=== PATIENT | female | born 1990 | race Caucasian/White ===

== ENCOUNTER 2019-09-19 13:53 | Outpatient (CLI) | payer OTHER, SELFPAY ==
--- NOTE | ~2019-09-19 | US_ITS ---
US OB <=14 wk fetus w TV DATE: 09/19/2019 14:52 INDICATION: Vaginal bleeding in early TECHNIQUE: COMPARISON: None FINDINGS: The uterus measures approximately 11 cm height and up to 4.5 cm anteroposterior dimension. There is a normal appearing intrauterine gestational sac with normal surrounding hyperechogenicity co nsistent with decidual reaction. A single live intrauterine gestation is identified, with heart rate of 122 bpm. [employer]-rump length averages 0.60 cm, consistent with estimated gestational age of 6 weeks 3 days +/- 4 days; BRIDGER by ultrasound is 05/11/2020 Right ovary measures 3.6 x 2.2 x 1.5 cm, with evidence of vascular flow. Left ovary measures 4.0 x 1.9 x 2.4 cm with vascular flow. There is a corpus luteum cyst measuring 1. 3 x 1.1 cm. Small fluid collection in the posterior cul-de-sac. IMPRESSION: Live dawson intrauterine gestation [employer]-rump length measurement 0.60 cm; estimated gestational age of 6 weeks 3 days +/- 4 days; BRIDGER: Reviewed, dictated and finalized at [facility]. Reviewed, dictated and finalized at location [facility]. IMPRESSION: Live dawson intrauterine gestation [employer]-rump length measurement 0.60 cm; estimated gestational age of 6 weeks 3 d ays +/- 4 days; BRIDGER: 05/11/2020
== END 2019-09-19 13:54 | disposition home or self-care (01) ==
PROVIDERS: Visit Provider Student in an Organized Health Care Education/Training Program
DX: O20.9 Hemorrhage in early pregnancy, unspecified (principal); Z3A.01 Less than 8 weeks gestation of pregnancy
CPT/HCPCS: 36415; 76801; 76817; 85461

== ENCOUNTER 2019-10-07 01:00 | Emergency (ER) | payer OTHER, SELFPAY ==
[2019-10-07 01:04] VITALS: BP 122/66; PULSE 78; RESP 20; TEMP 36.4; O2SAT 100
--- NOTE | 2019-10-07 01:11 | ED.PREGNANCY ---
HPI - General Chief complaint: Vaginal Bleeding Stated complaint: 9 WEEKS PREG BLEEDING Time Seen by Provider: 10/07/19 01:05 Source: patient Mode of arrival: ambulatory Limitations: no limitations History of Present Illness HPI Narrative: This patient is a 29 year old female who presents for evaluation of vaginal bleed. She states 3 weeks ago she was evaluated for vaginal spotting and she had an ultrasound that showed a live IUP. She has been doing well until tonight when she developed vaginal bleeding using the restroom . She is unsure how much she is bleeding but she reports bright red blood in the toilet. She is also having pelvic cramping that is worse than a menstrual cramp. She is rH negative but she has not had rhogam during this . MD Complaint: vaginal bleeding Onset (ago): hour(s) (1) Pain Consistency: constant Location: pelvis Patient : Yes Number of Weeks : 9 care: followed by OB (Dr. Figueroa) Related Data : 4 Para: 2 Total number of abortions (spontaneous and elective): 1 Allergies Allergy/AdvReac Type Severity Reaction Status Date / Time amoxicillin Allergy Unknown Unknown Verified 10/07/19 01:06 ampicillin Allergy Unknown Unknown Verified 10/07/19 01:06 Penicillins Allergy Unknown Unknown Verified 10/07/19 01:06 Review of Systems Review of Systems: All systems reviewed & are unremarkable except as noted in HPI and below Constitutional: Constitutional: Denies chills and Denies fever(s) Respiratory: Respiratory: Denies cough and Denies dyspnea Gastrointestinal: Gastrointestinal: Reports abdominal pain and Reports nausea Genitourinary: Genitourinary: Reports abnormal vaginal bleeding [facility] Past Medical History Medical History (Updated 10/07/19 @ 03:06 by Marisol Friedman MD) Patient denies medical problems Social History Social History Smoking status: Never smoker Alcohol intake: never Exam Narrative: Exam Narrative: GENERAL: Well-appearing, well-nourished, and in no acute distress. HEAD: Normocephalic, atraumatic EYES: EOMI, conjunctiva clear without discharge THROAT:Mucous membranes moist, NECK: Supple, RESPIRATORY: No respiratory distress, Airway patent, Respirations non-labored, Clear to auscultation without rales, rhonchi or wheeze HEART: Regular rate and rhythm. No murmur heard. Normal peripheral pulses. ABDOMEN: Soft, nontender, nondistended, normal active bowel sounds. No masses. No rebound or guarding, No organomegaly. EXTREMITIES: No edema, normal strength with full range of motion. SKIN: Warm, dry, normal color without rash NEURO: Alert and oriented x3. CN 2-12 grossly intact. No focal deficits. PSYCH: Normal mood and affect. : Speculum Exam - Vagina: vaginal bleeding (removed half dollar size clot from vaginal vault, no active bleeding,) Speculum Exam - Cervix: Cervical os closed Course Reevaluation(s) Reevaluation #1: I performed a bedside ultrasound and patient still has IUP with FHT 150s. I have explained to patient discharge plan after rhogam Date: 10/07/19 Time: 03:04 Consultations Consultation #1: I Discussed case with DR. Figueroa who states patient should call office this morning to get arranged for ultrasound. Date: 10/07/19 Time: 03:04 Vital Signs Vital signs: Vital Signs Temperature 97.6 F 10/07/19 01:04 Pulse Rate 78 10/07/19 01:04 Respiratory Rate 20 10/07/19 01:04 Blood Pressure 122/66 10/07/19 01:04 Pulse Oximetry 100 10/07/19 01:04 Temperature 98.3 F 10/07/19 03:13 Pulse Rate 61 10/07/19 03:13 Respiratory Rate 19 10/07/19 03:13 Blood Pressure 117/65 10/07/19 03:13 Pulse Oximetry 100 10/07/19 03:13 MDM - OB/Uterine Contractions Lab Data Attestation: I reviewed the patient's lab results. Result diagrams: 10/07/19 01:23 Labs: Lab Results 10/07/19 10/07/19 06
[2019-10-07 01:30] LABS: Basophils Absolute Auto 0.1 K/mm3 (0.0-0.1); Basophils Percent Auto 0.4 % (0.2-1.2); Eosinophils Absolute Auto 0.2 K/mm3 (0-0.3); Eosinophils Percent Auto 1.7 % (0-4.4); Hematocrit 38.7 % (37.0-47.0); Hemoglobin 12.9 g/dL (12.0-15.0); Immature Granulocyte Absolute 0.04 K/mm3 (0.00-0.031); Immature Granulocyte Percent A 0.3 % (0-0.5); Lymphocytes Absolute Auto 3.15 K/mm3 (0.9-3.2); Lymphocytes Percent Auto 27.2 % (18.3-44.2); Mean Corpuscular HGB Conc 33.3 g/dl (32-36); Mean Corpuscular Volume 83.9 fl (80-100); Mean Platelet Volume 11.6 fl (7.4-10.4); Monocytes Absolute Auto 0.7 K/mm3 (0.1-0.6); Neutrophils Absolute Auto 7.5 K/mm3 (1.3-6.7); Neutrophils Percent Auto 64.4 % (45.5-73.1); Platelet Count Result 240 k/mm3 (150-375); Red Blood Count 4.61 M/mm3 (4.2-5.4); White Blood Count 11.6 K/mm3 (4.5-10.0)
[2019-10-07 02:35] VITALS: BP 118/76; PULSE 84; RESP 19; TEMP 36.6; O2SAT 100
[2019-10-07 02:53] VITALS: BP 116/72; PULSE 81; RESP 16; TEMP 36.8; O2SAT 100
[2019-10-07 03:04] VITALS: BP 112/69; PULSE 59; RESP 19; O2SAT 100
[2019-10-07 03:13] VITALS: BP 117/65; PULSE 61; RESP 19; TEMP 36.8; O2SAT 100
== END 2019-10-07 03:18 | disposition home or self-care (01) ==
PROVIDERS: Emergency Provider General Practice; PCP Family Medicine
DX: O20.9 Hemorrhage in early pregnancy, unspecified (principal); Z3A.09 9 weeks gestation of pregnancy
CPT/HCPCS: 36415; 84702; 85025; 85461; 90384; 96372; 96374; 99284; J0131; J2790

== ENCOUNTER 2019-10-08 10:35 | Outpatient (CLI) | payer OTHER, SELFPAY ==
--- NOTE | ~2019-10-08 | US_ITS ---
EXAMINATION: US OB <= 14 weeks fetus EXAM DATE: 10/08/2019 11:11 INDICATION: Abdominal bleeding. . 1st trimester. TECHNIQUE: Pelvic obstetrical transabdominal sonogram was performed by a technologist. There are mu ltiple grayscale and Doppler images available for interpretation. Comparison is made to prior examina tion from 09/19/2019. FINDINGS: Uterus measures 10.8 x 6.4 x 6.0 cm. There is intrauterine gestation sac. pole with heart rate confirmed at 159 beats per minute. The 2.3 cm crown-rump length corresponds to estimated gestational age by ultrasound of 9 weeks 0 days, estimated date of confinement 05/12/2020. Yolk sac is identified. There is a thin hypoechoic regions adjacent to the chorion measuring 2 cm diameter b y 3 mm in thickness, consistent with small subchorionic hemorrhage. Left ovary likely contains the c orpus luteal cyst. Right ovary not identified. IMPRESSION: Live intrauterine gestation with small subchorionic hemorrhage. Reviewed, dictated and finalized at location [facility].
== END 2019-10-08 10:36 | disposition home or self-care (01) ==
LOC: ANHIMG 10:39
PROVIDERS: PCP Family Medicine; Visit Provider Student in an Organized Health Care Education/Training Program
DX: O43.899 Other placental disorders, unspecified trimester (principal); Z3A.00 Weeks of gestation of pregnancy not specified
CPT/HCPCS: 76801

== ENCOUNTER 2019-10-21 07:14 | Emergency (ER) | payer OTHER, SELFPAY ==
--- NOTE | ~2019-10-21 | US_ITS ---
EXAMINATION: US OB <= 14 weeks fetus DATE: 10/21/2019 08:46 INDICATION: Lower abdominal pain during first trimester TECHNIQUE: Real-time pelvic transabdominal and transvaginal ultrasound was performed. COMPARISON: 10/08/2019 FINDINGS: The uterus measures 13.9 x 10.3 x 6.2 cm. There is an intrauterine gestational sac. A yolk sac is identified. heart motion is identified measuring 152 beats per minute (bpm) by M-mode D oppler. The crown rump length measures 4.2 cm , which correlates with an estimated gestational age of 11 weeks and 1 day(s) (+/-) 7 day(s). The left ovary is not visualized however no left adnexal abnormality is seen. The right ovary measure s 3.6 x 3.2 x 1.6 cm. There is normal vascular flow in the right ovary. There is no free fluid in the pelvis. IMPRESSION: 1. Live intrauterine with an estimated gestational age of 11 weeks and 1 day(s) (+/-) 7 day (s) and an estimated delivery date of 05/10/2019. 2. No sonographic correlate for the patient's symptoms. Reviewed, dictated and finalized at location [facility]. IMPRESSION: 1. Live intrauterine with an estimated gestational age of 11 weeks an d 1 day(s) (+/-) 7 day(s) and an estimated delivery date of 05/10/2019. 2. No sonographic correlate for the patient's symptoms.
[2019-10-21 07:22] VITALS: BP 103/58; PULSE 64; RESP 18; TEMP 37.1; O2SAT 99
--- NOTE | 2019-10-21 07:32 | ED.NAVMDI ---
HPI - Nausea/Vomiting/Diarrhea General Chief complaint: Nausea/Vomiting/Diarrhea Stated complaint: 11 WK PREG, N/V Time Seen by Provider: 10/21/19 07:21 History of Present Illness HPI Narrative: Patient presents with her for vomiting for 24 hours. She has lower abdominal pain with this. 5 or 6 out of 10. Also she has a headache in the posterior occiput, 8 out of 10. She is 11 weeks . She has not had diarrhea. She has had no documented fever, but has had chills and sweats after vomiting. She has a history of migraine. This is her third with a 1-year-old and 3-year-old at home. Her only prescription medication is her vitamins. Her surgical history is C-sections x2. MD elicited complaint: nausea, vomiting and abdominal pain Pertinent past history: abdominal surgery and other (Migraine headache with vomiting) Onset (ago): day(s) Associated nausea: Yes Associated abdominal pain: Yes Location of pain: suprapubic Pain consistency: constant Severity: moderate Related Data Allergies Allergy/AdvReac Type Severity Reaction Status Date / Time amoxicillin Allergy Unknown Unknown Verified 10/08/19 09:35 ampicillin Allergy Unknown Unknown Verified 10/08/19 09:35 Penicillins Allergy Unknown Unknown Verified 10/08/19 09:35 Review of Systems Review of Systems: Narrative: CONSTITUTIONAL: Denies fever, but she has had chills, and sweats. EYES: Denies visual changes, redness, or discharge. ENT: Denies rhinorrhea, congestion, sore throat, or otalgia. CARDIOVASCULAR: Denies chest pain, palpitations, or edema. RESPIRATORY: Denies cough or dyspnea. GASTROINTESTINAL: She has abdominal pain, and nausea, vomiting, but none diarrhea. GENITOURINARY: Denies dysuria or hematuria. SKIN: Denies rash or itching. MUSCULOSKELETAL: Denies back pain, joint pain, or myalgia. NEUROLOGIC: She has headache. PSYCHIATRIC: Denies anxiety or depression. [facility] Past Medical History Medical History (Updated 10/21/19 @ 07:37 by Jenni Harden MD) Patient denies medical problems Surgical History Surgical History (Updated 10/21/19 @ 07:35 by Jenni Harden MD) History of Social History Social History Smoking status: Never smoker Alcohol intake: never Gender identity (if verbalized by the patient): Female Exam Narrative: Exam Narrative: GENERAL: Well-appearing, well-nourished, and in no acute distress. Cammie. HEAD: Normocephalic, atraumatic. EYES: PERRLA and EOMI. ENT: Nares clear, no rhinorrhea or epistaxis. Mucous membranes moist. NECK: Supple. CHEST: Clear to auscultation. No respiratory distress. HEART: Regular rate and rhythm. No murmur heard. Normal peripheral pulses. ABDOMEN: Soft, nontender, nondistended, normal active bowel sounds. EXTREMITIES: Normal range of motion. No edema. SKIN: Warm, dry, no rash. NEURO: No focal deficits. Alert and oriented x3. PSYCH: Normal mood and affect. 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 Her IV was slowing slowly, so I elevated her elbow. Because she still has some abdominal pain I ordered an ultrasound of the pelvis with transvaginal. Reevaluation(s) Reevaluation #1: Went back into check on the patient and she is feeling entirely better. The abdominal pain is gone, nausea is gone, and the headache is better. She is ready for discharge. She has an GAMING HOST to follow-up with. Date: 10/21/19 Time: 10:10 Vital Signs Vital signs: Vital Signs Temperature 98.8 F 10/21/19 07:22 Pulse Rate 64 10/21/19 07:22 Respiratory Rate 18 10/21/19 07:22 Blood Pressure 103/58 L 10/21/19 07:22 Pulse Oximetry 99 10/21/19 07:22 Temperature 98.8 F 10/21/19 07:22 Pulse Rate 60 10/21/19 09:26 Respiratory Rate 18 10/21/19 09:26 Blood Pressure 102/60 10/21/19 09:26 Pulse Oximetry 99 10/21/19 09:26 MDM - N
[2019-10-21] MEDS: SODIUM CHLORIDE 0.9% IV 1,000 ML 999 ML IV CONT (07:39)
[2019-10-21] MEDS: METOCLOPRAMIDE HCL INJ 10 MG/2 ML VIAL IV PUSH (07:41)
[2019-10-21 07:45] LABS: Basophils Percent Auto 0.4 % (0.2-1.2); Eosinophils Absolute Auto 0.1 K/mm3 (0-0.3); Eosinophils Percent Auto 0.7 % (0-4.4); Hematocrit 42.3 % (37.0-47.0); Immature Granulocyte Absolute 0.03 K/mm3 (0.00-0.031); Immature Granulocyte Percent A 0.3 % (0-0.5); Lymphocytes Percent Auto 20.2 % (18.3-44.2); Mean Corpuscular HGB Conc 33.1 g/dl (32-36); Mean Corpuscular Hemoglobin 27.8 pg (26-34); Mean Corpuscular Volume 83.9 fl (80-100); Mean Platelet Volume 11.5 fl (7.4-10.4); Monocytes Absolute Auto 0.5 K/mm3 (0.1-0.6); Monocytes Percent Auto 5.6 % (2.6-8.5); Neutrophils Absolute Auto 6.5 K/mm3 (1.3-6.7); Neutrophils Percent Auto 72.8 % (45.5-73.1); Platelet Count Result 235 k/mm3 (150-375); Red Blood Count 5.04 M/mm3 (4.2-5.4); Red Cell Distribution Width 15.6 % (11.5-14.5); White Blood Count 8.9 K/mm3 (4.5-10.0)
[2019-10-21 07:56] LABS: Alanine Aminotransferase 9 U/L (4-35); Albumin Level 4.4 g/dL (3.5-5.1); Alkaline Phosphatase 55 U/L (38-126); Aspartate Amino Transferase 13 U/L (14-36); Bilirubin,Total 0.5 mg/dL (0.2-1.3); Blood Urea Nitrogen 8 mg/dL (7-17); Calcium 9.4 mg/dL (8.4-10.2); Carbon Dioxide 25 mmol/L (22-30); Chloride 102 mmol/L (98-107); Estimated CRCL calculation 126 ml/min; Estimated Glomerular Filt Rate > 60; Glucose 104 mg/dL (65-105); Sodium 138 mmol/L (137-145)
--- NOTE | 2019-10-21 08:16 | PC.NURSE ---
IVF continue to infuse. Pt reports nausea is gone and headache is decreasing. Unable to void at present.
[2019-10-21 09:08] LABS: Add Urine Microscopic? YES; Appearance Urine Cloudy (Clear); Bacteria Urine Trace /hpf; Bilirubin Urine Negative (Negative); Blood Urine Negative (Negative); Color Urine Yellow (Yellow); Glucose Urine UA Negative (Negative); Ketones Urine Negative (Negative); Leukocyte Esterase Ur 1+ LEU/UL (Negative); Mucus Urine Rare /lpf; Nitrate Urine Negative (Negative); Protein Urine Negative (Negative); RBC Urine 0-2 /hpf (0-2); Specific Grav Ur 1.013 (1.001-1.035); Squamous Epithelial Cell Urine Many /hpf (Few); Urobilinogen Urine Negative mg/dL (<2.0); WBC Urine 0-3 /hpf
[2019-10-21] MEDS: ONDANSETRON INJ 4 MG/2 ML VIAL IV PUSH (09:25)
[2019-10-21] MEDS: DEXTROSE 5%/0.9% SOD CHL 1,000 ML 1000 ML IV CONT (09:25)
[2019-10-21 09:26] VITALS: BP 102/60; PULSE 60; RESP 18; O2SAT 99
[2019-10-21 10:40] VITALS: BP 111/62; PULSE 64; RESP 16; O2SAT 99
== END 2019-10-21 10:45 | disposition home or self-care (01) ==
PROVIDERS: Emergency Provider Emergency Medicine; PCP Family Medicine
DX: O21.0 Mild hyperemesis gravidarum (principal); O26.891 Other specified pregnancy related conditions, first trimester; R51 Headache; R10.9 Unspecified abdominal pain; Z3A.11 11 weeks gestation of pregnancy
CPT/HCPCS: 36415; 76801; 80053; 81001; 84702; 85025; 96361; 96374; 96375; 99284; J1200; J2405; J2765; J7030; J7042

== ENCOUNTER 2019-11-26 08:57 | Outpatient (RCR) | payer OTHER, SELFPAY ==
[2019-11-26 09:34] LABS: Add Urine Microscopic? YES; Appearance Urine Cloudy (Clear); Bacteria Urine Trace /hpf; Bilirubin Urine Negative (Negative); Blood Urine Negative (Negative); Color Urine Yellow (Yellow); Glucose Urine UA Negative (Negative); Ketones Urine Negative (Negative); Leukocyte Esterase Ur 1+ LEU/UL (NEGATIVE); Mucus Urine Rare /lpf; Nitrate Urine Negative (Negative); Protein Urine Negative (Negative); Specific Grav Ur 1.013 (1.001-1.035); Squamous Epithelial Cell Urine Many /hpf (Few); Transitional Epi Cells Urine Rare /hpf (None Seen); Urobilinogen Urine Negative mg/dL (<2.0); WBC Urine 21-30 /hpf (0-3)
[2019-11-26 10:22] LABS: HIV 1/2 Ab P24 Ag Result Negative (Negative)
[2019-11-26 10:45] LABS: Vitamin D 25 Hydroxy 24.9 ng/mL
[2019-11-26 10:55] LABS: Hepatitis C Virus Antibody Negative (Negative)
[2019-11-26 11:04] LABS: Hepatitis B Surface Antigen Negative (Negative); Rubella IgG Antibody 29.7 IU/ML
[2019-11-27 09:45] LABS: Rapid Plasma Reagin Non-Reactive (NonReactive)
[2019-12-09 18:11] LABS: CF Result NEGATIVE (NEGATIVE)
== END 2020-02-24 23:59 | disposition home or self-care (01) ==
LOC: ANHLAB 08:57
PROVIDERS: PCP Family Medicine; Visit Provider Student in an Organized Health Care Education/Training Program
DX: Z11.4 Encounter for screening for human immunodeficiency virus [HIV] (principal)
CPT/HCPCS: 36415; 81001; 81220; 81243; 82306; 84443; 86592; 86703; 86762; 86787; 86803; 86850; 86880; 86900; 86901; 87077; 87086; 87088; 87186; 87340; G0432

== ENCOUNTER 2020-01-27 18:35 | Observation (INO) | payer OTHER, SELFPAY ==
[2020-01-27 18:59] VITALS: BP 106/52; PULSE 70
[2020-01-27 19:03] LABS: Add Urine Microscopic? YES; Amorphous Sediment Urine Few; Appearance Urine Cloudy (Clear); Bilirubin Urine Negative (Negative); Blood Urine Negative (Negative); Color Urine Yellow (Yellow); Glucose Urine UA Negative (Negative); Ketones Urine Negative (Negative); Leukocyte Esterase Ur Negative LEU/UL (Negative); Mucus Urine Heavy /lpf; Nitrate Urine Negative (Negative); Protein Urine 1+ mg/dL (Negative); Specific Grav Ur 1.026 (1.001-1.035); Squamous Epithelial Cell Urine Many /hpf (Few); Urobilinogen Urine Negative mg/dL (<2.0); WBC Urine 0-3 /hpf
--- NOTE | 2020-02-25 07:15 | PM.OBTRLD ---
OB - Triage/Final Diagnosis Evaluation Laboratory results: Laboratory Tests 01/27/20 18:48 Urine Color Yellow Urine Appearance Cloudy H Urine pH 6.0 Ur Specific [place] 1.026 Urine Protein 1+ H Urine Glucose (UA) Negative Urine Ketones Negative Ur Blood (Man) Negative Urine Nitrate Negative Urine Bilirubin Negative Urine Urobilinogen Negative Leukocyte Esterase Rfl Negative Urine RBC 3-5 H Urine WBC 0-3 Ur Squamous Epith Cells Many H Amorphous Sediment Few H Urine Mucus Heavy H Final Diagnosis (1) Pain of round ligament during : Code(s): O26.899 - Other specified related conditions, unspecified trimester; R10.2 - Pelvic and perineal pain Status: Acute
== END 2020-01-27 19:35 | disposition home or self-care (01) ==
PROVIDERS: Admitting Provider Obstetrics & Gynecology; PCP Family Medicine; Visit Provider Obstetrics & Gynecology
DX: O26.892 Other specified pregnancy related conditions, second trimester (principal); R10.2 Pelvic and perineal pain; Z3A.25 25 weeks gestation of pregnancy
CPT/HCPCS: 81001; G0378; G0379

== ENCOUNTER 2020-05-07 00:40 | Inpatient (IN) | payer OTHER, SELFPAY ==
--- NOTE | 2020-05-05 06:45 | WPDANESEPPF ---
Anes - Initial Pre Proc Eval Procedure: Operation Date: 05/05/20 07:30 Proposed Procedures p Repeat Section - Sharyn Figueroa MD Date/Time: 05/05/20 06:45 Surgeon: Sharyn Figueroa MD Pre Op Diagnosis: Previous , Desires Sterilization Patient Data Age: 29 Gender: F Height: Weight: Allergies Allergy/AdvReac Type Severity Reaction Status Date / Time amoxicillin Allergy Unknown Unknown Verified 12/24/19 08:38 ampicillin Allergy Unknown Unknown Verified 12/24/19 08:38 Penicillins Allergy Unknown Unknown Verified 12/24/19 08:38 Home Medications Medication Instructions Recorded Confirmed Type vitamin no.102-iron 90 1 cap PO DAILY #90 cap 09/19/19 01/27/20 Rx mg-folate 1 mg-dha 200 mg capsule [id number] 1 cap PO Q6H PRN #20 cap 11/01/19 01/27/20 Rx 50 mg-300 mg-40 mg capsule buspirone 5 mg tablet 5 mg PO BID #60 tablet 11/26/19 01/27/20 Rx metoclopramide HCl 10 mg PO BID PRN 01/27/20 01/27/20 History Patient hx anesthesia problems: none Family hx anesthesia problems: none PMFSH Past Medical History Medical History (Updated 04/28/20 @ 16:27 by Sharyn Figueroa MD) Patient denies medical problems Surgical History Surgical History (Updated 04/28/20 @ 16:26 by Sharyn Figueroa MD) History of Social History Social History Smoking status: Never smoker Alcohol intake: never Gender identity (if verbalized by the patient): Female Anes - Eval Final PreProcedure Day of Procedure 05/05/20 06:45 Patient weight: overweight Heart: regular rate and rhythm Lungs: clear to auscultation and normal air movement Airway: Mallampati scale class II Neurological: alert and oriented Last oral intake: >/= 8 hours ASA classification: II Emergent: no Anesthetic plan: proceed Anesthesia type and monitoring: regional spinal Informed Consent: The patient's anesthetic plan and its attendant risks and benefits were discussed with the patient/family/POA. Questions were solicited and answers provided to the satisfaction of the patient/family/POA.
[2020-05-07] VITALS (57 sets, daily range): BP systolic 92–122; BP diastolic 52–81; PULSE 51–93; RESP 14–20; TEMP 35.8–37.2; O2SAT 96–100; BMI 29.7
[2020-05-07 01:21] LABS: Basophils Percent Auto 0.3 % (0.2-1.2); Eosinophils Absolute Auto 0.2 K/mm3 (0-0.3); Eosinophils Percent Auto 1.2 % (0-4.4); Hematocrit 34.8 % (37.0-47.0); Hemoglobin 10.9 g/dL (12.0-15.0); Immature Granulocyte Absolute 0.13 K/mm3 (0.00-0.031); Lymphocytes Absolute Auto 2.17 K/mm3 (0.9-3.2); Lymphocytes Percent Auto 16.6 % (18.3-44.2); Mean Corpuscular HGB Conc 31.3 g/dl (32-36); Mean Corpuscular Hemoglobin 23.6 pg (26-34); Mean Corpuscular Volume 75.5 fl (80-100); Mean Platelet Volume 11.3 fl (7.4-10.4); Monocytes Absolute Auto 0.8 K/mm3 (0.1-0.6); Monocytes Percent Auto 5.8 % (2.6-8.5); Neutrophils Absolute Auto 9.8 K/mm3 (1.3-6.7); Neutrophils Percent Auto 75.1 % (45.5-73.1); Platelet Count Result 178 k/mm3 (150-375); Red Blood Count 4.61 M/mm3 (4.2-5.4); Red Cell Distribution Width 16.2 % (11.5-14.5); White Blood Count 13.1 K/mm3 (4.5-10.0)
[2020-05-07] MEDS: LACTATED RINGERS 1,000 ML 999 ML IV CONT (01:23)
[2020-05-07] MEDS: CLINDAMYCIN 900 MG/D5W 50 ML 900 MG/50 ML PIGGYBACK 50 MG IVPB (01:24)
[2020-05-07 01:28] LABS: Glucose Point of Care 129 (65-105)
[2020-05-07] MEDS: GENTAMICIN SULFATE INJ 335 MG in DEXTROSE 5% 100 ML 108.38 MG IVPB (01:35)
--- NOTE | 2020-05-07 01:35 | WPDANESEPP ---
Anes - Eval Pre Procedure Procedure: Operation Date: 05/07/20 02:00 Proposed Procedures p Repeat Section - Sharyn Figueroa MD Date/Time: 05/07/20 01:35 Surgeon: cely birmingham Preop Diagnosis: previous c section Pre Op Diagnosis: Leaking Patient Data Age: 29 Gender: F Height: 1.65 m Weight: 80.9 kg Last Vital Signs Pulse 80 05/07/20 01:31 BP 113/63 05/07/20 01:31 Allergies Allergy/AdvReac Type Severity Reaction Status Date / Time amoxicillin Allergy Unknown Unknown Verified 05/06/20 14:12 ampicillin Allergy Unknown Unknown Verified 05/06/20 14:12 Penicillins Allergy Unknown Unknown Verified 05/06/20 14:12 Home Medications Medication Instructions Recorded Confirmed Type vitamin no.102-iron 90 1 cap PO DAILY #90 cap 09/19/19 01/27/20 Rx mg-folate 1 mg-dha 200 mg capsule [id number]-dpssdwvg 1 cap PO Q6H PRN #20 cap 11/01/19 01/27/20 Rx 50 mg-300 mg-40 mg capsule buspirone 5 mg tablet 5 mg PO BID #60 tablet 11/26/19 01/27/20 Rx metoclopramide HCl 10 mg PO BID PRN 01/27/20 01/27/20 History Laboratory Tests 05/07/20 05/07/20 05/07/20 01:13 01:13 01:13 WBC 13.1 K/mm3 H K/mm3 (4.5-10.0) RBC 4.61 M/mm3 M/mm3 (4.2-5.4) Hgb 10.9 g/dL L D g/dL (12.0-15.0) Hct 34.8 % L % (37.0-47.0) MCV 75.5 fl L fl (80-100) MCH 23.6 pg L pg (26-34) MCHC 31.3 g/dl L g/dl (32-36) RDW 16.2 % H % (11.5-14.5) Plt Count 178 k/mm3 k/mm3 (150-375) MPV 11.3 fl H fl (7.4-10.4) Immature Gran % (Auto) 1.0 % H % (0-0.5) Neut % (Auto) 75.1 % H % (45.5-73.1) Lymph % (Auto) 16.6 % L % (18.3-44.2) Terry % (Auto) 5.8 % % (2.6-8.5) Eos % (Auto) 1.2 % % (0-4.4) Baso % (Auto) 0.3 % % (0.2-1.2) Lymph # (Auto) 2.17 K/mm3 K/mm3 (0.9-3.2) Terry # (Auto) 0.8 K/mm3 H K/mm3 (0.1-0.6) Eos # (Auto) 0.2 K/mm3 K/mm3 (0-0.3) Baso # (Auto) 0.0 K/mm3 K/mm3 (0.0-0.1) Abs Immat Gran (auto) 0.13 K/mm3 H K/mm3 (0.00-0.031) Absolute Neuts (auto) 9.8 K/mm3 H K/mm3 (1.3-6.7) Absolute Nucleated RBC 0.0 K/mm3 K/mm3 (0.0-0.012) Nucleated RBC % 0.0 % % (0.0-0.2) POC Capillary Glucose RPR Pending HIV 1&2 Ab/P24 Ag 4thGn Pending 05/07/20 01:14 WBC RBC Hgb Hct MCV MCH MCHC RDW Plt Count MPV Immature Gran % (Auto) Neut % (Auto) Lymph % (Auto) Terry % (Auto) Eos % (Auto) Baso % (Auto) Lymph # (Auto) Terry # (Auto) Eos # (Auto) Baso # (Auto) Abs Immat Gran (auto) Absolute Neuts (auto) Absolute Nucleated RBC Nucleated RBC % POC Capillary Glucose 129 mg/dl H mg/dl (65-105) RPR HIV 1&2 Ab/P24 Ag 4thGn Patient hx anesthesia problems: none Family hx anesthesia problems: none PMFSH Past Medical History Medical History Patient denies medical problems Surgical History Surgical History History of Social History Social History Smoking status: Never smoker Alcohol intake: never Gender identity (if verbalized by the patient): Female Exam Day of Procedure 05/07/20 01:35
--- NOTE | 2020-05-07 01:36 | LDADM ---
This patient, Marina Brown, was admitted to Labor/Delivery/Recovery 119 on 05/07/20 at 00:40. Plans for labor, pain management and were discussed with patient. Patient/family oriented to hospital policies and general routines including ID bracelet, bed and alarms, visiting hours, pain management, procedures, bathroom and other care routines, personal items, smoking policy, room service/diet and guest tray routines, infant security routines, and visiting hours. Patient/Family are encouraged to report perceived risks to care and to ask questions if they do not understand what they are told or what they should do. See OBIX for further documentation.
--- NOTE | 2020-05-07 01:46 | PM.IMHP ---
H&P: HPI History of Present Illness Date/Time: 05/07/20 01:46 Chief Complaint: SROM at 39 weeks 3 days with h/o CD x 2 Narrative: Marina Brown is a 29 year old female at 39 weeks 3 days confirmed by BRIDGER of 05/11/2020 comes with SROM around 11.15 pm.Per pt was clear fluid .Pt was scheduled for RLTCS on 05/05/2020 and did not showed up for her CD. C/O CTXNS. denies VB.Feels FM. complicated by limited care. She did not performed 1 hr gluola and her blood type is A neg and did not received RHOGAM. Review of Systems Constitutional: Constitutional: Denies chills, Denies fever(s) and Denies headache(s) Eyes: Eyes: Reports as per HPI and Denies blurry vision ENT: Reports as per HPI and Reports Normal hearing present Cardiovascular: Cardiovascular: Reports as per HPI, Denies chest pain and Denies dyspnea Respiratory: Respiratory: Reports as per HPI and Denies cough Gastrointestinal: Gastrointestinal: Reports as per HPI, Denies nausea and Denies vomiting Genitourinary: Genitourinary: Reports as per HPI Musculoskeletal: Musculoskeletal: Reports as per HPI Neurologic: Reports Normal hearing present Psychiatric: Psychiatric: Reports no additional psychiatric complaints and Reports as per HPI [facility] Past Medical History Medical History (Updated 05/07/20 @ 03:01 by Emily Weiss MD) Patient denies medical problems SROM (spontaneous rupture of membranes) Surgical History Surgical History History of Social History Social History Smoking status: Never smoker Alcohol intake: never Gender identity (if verbalized by the patient): Female Meds Home Medications and Allergies Home Medications Medication Instructions Recorded Confirmed Type vitamin no.102-iron 90 1 cap PO DAILY #90 cap 09/19/19 05/07/20 Rx mg-folate 1 mg-dha 200 mg capsule Allergies Allergy/AdvReac Type Severity Reaction Status Date / Time amoxicillin Allergy Unknown Unknown Verified 05/06/20 14:12 ampicillin Allergy Unknown Unknown Verified 05/06/20 14:12 Penicillins Allergy Unknown Unknown Verified 05/06/20 14:12 Vital Signs Vital Signs - 24 hr 05/07/20 01:17 05/07/20 01:31 Pulse Rate 87 80 Blood Pressure 121/56 L 113/63 Exam Const: General: cooperative, healthy appearing, comfortable, no acute distress, well developed, alert, awake and Physically active Nutritional Appearance: well nourished Orientation/consciousness: patient oriented x3 Limitations: no limitations HENMT: Head: normal to inspection Ears: hearing grossly normal bilaterally Resp: Effort & Inspection: normal respiratory effort and able to speak in complete sentences Auscultation: clear to auscultation bilaterally Cardio: Rate: regular rate Rhythm: regular rhythm GI: Inspection: other (Gravid) GI Palp: Yes Other GI palpation findings present (FHT 120 and reassuring.CTXNS every 3-4 min) : OB/external & speculum: other (cervix 4 cm/50/-3 per nurse); no bleeding Amniotic Fluid: clear H&P: Results Labs Labs: Short CBC 05/07/20 Range/Units 01:13 WBC 13.1 H (4.5-10.0) K/mm3 Hgb 10.9 L D (12.0-15.0) g/dL Hct 34.8 L (37.0-47.0) % Plt Count 178 (150-375) k/mm3 Assessment and Plan Assessment and plan (1) Previous section: Code(s): Z98.891 - History of uterine scar from previous surgery Status: Acute Assessment and Plan: will proceed with RLTCS. Discussed procedure in detail as well as risk of procedure i.e infection/bleeding may require BT which pt agrees,/injury to bowel,bladder and adjacent structure/anesthesia risk/can be life threatening. Couple voiced verbalized. All question answered. (2) SROM (spontaneous rupture of membranes): Status: Acute Assessment and Plan: will proceed with RLTCS
--- NOTE | 2020-05-07 01:48 | WPDHPUPDATE1 ---
History and Physical Update Update Date/Time: 05/07/20 01:48 History and Physical has been reviewed, including an updated exam of the patient. There are NO changes in the patient's condition. Risks, benefits, and alternatives have been discussed and questions answered. Patient agrees to proceed with procedure.
[2020-05-07 02:30] LABS: HIV 1/2 Ab P24 Ag Result Negative (Negative)
--- NOTE | 2020-05-07 03:16 | PM.OBPRVD ---
OB - Delivery Note Procedure Procedure: Procedures Operation Date: 05/07/20 02:00 Actual Procedures Side Surgeon p Repeat Section Emily Weiss MD events: Previous (x 2) Intrapartal events: None Delivery monitor: external FHT and external uterine Route of delivery: Quantitative Blood Loss (ml): 1,185 Anesthesia type: Spinal Disposition: PACU Complications: None Baby Date of : 05/07/20 Weeks of gestation at delivery: 39 gender: Female Weight (pounds): 7 Weight (ounces): 13 presentation: vertex position: Right Occiput Transverse Placenta delivery description: Manual Removal cord vessel description: 3 Vessels and Nuchal Cord (x2) score one minute: 9 score five minutes: 9
--- NOTE | 2020-05-07 03:18 | PM.PROC ---
Procedure Note - Detailed Date of procedure: 05/07/20 Pre-op diagnosis: Leaking IUP at 39 weeks 3 days with h/o Cdx 2 SROM Labor Post-op diagnosis: same Procedure performed: RLTCS Description of procedure: Discuss the procedure in detail. Discuss the risk of the procedure that is infection, bleeding which may require blood transfusion which patient agrees, injury to bowel and bladder adjacent structures, anesthesia risk, can be life threatening, patient was voiced verbalized and informed consent was obtained. Patient was taken to the OR. spinal anesthesia was instituted. Patient was given dorsal supine position with leftward tilt. Coleman catheter introduced under sterile technique. Patient was prepped and draped in normal sterile fashion.Anesthesia level checked and found to be adequate . Time-out was performed. Patient received antibiotic as per protocol. With scalpel skin incision was performed on her previous scar, And carried to the underlying layer of fascia. Fascia was incised in midline extended laterally with the help of Vera scissor and Bovie . Superior aspect of the fascial incision was grasped with the Gera clamps elevated and underlying rectus muscle dissected off bluntly. similarly inferior aspect of the fascial incision was grasped with a Gera clamp elevated underlying rectus muscle dissected off bluntly. Rectus muscles in midline and entered the peritoneal cavity bluntly. Peritoneal cavity was extended superiorly inferiorly with good visualization of bladder. Bladder blade was inserted for with psychogenic peritoneum was identified and bladder flap was created digitally. Bladder blade reinserted. Transverse incision was then made on the lower uterine segment an extended laterally bluntly. Upon hysterotomy clear fluid was noted. head was delivered atraumatically. Nuchal cord x2 was noted which was released easily. After following the delivery of the head the anterior shoulder posterior shoulder and rest of the torso was delivered without any complication. Infant nose and mouth was suctioned. Cord was clamped and cut. Infant vigorously crying and was handed to the waiting nurse. Cord blood and gases collected. Placenta was delivered manually. Uterus exteriorized and cleared of all clots. Uterine incision was approximated with 0 Polysorb in a running locked fashion. Second imbricated layer performed with O Polysorb was performed. Excellent hemostasis noted. Posterior gutters cleared of all clots. Uterus entered into the abdomen. Lateral gutters cleared of all clots. One more time excellent hemostasis noted at the uterine incision site. Vesico uterine peritoneum approximated with 3 0 Polysorb. All the instruments removed from the abdomen. Peritoneum approximated with 3 0 Polysorb. Fascia approximated with PDS. Subcutaneous layer approximated with 3 0 Polysorb. Skin approximated with the 4 0 Biosyn and Dermabond. Pressure dressing applied. Sponge lap needle counts correct x2. Patient tolerated procedure well. Patient taken to the recovery room awake in stable condition and then New born to nursery in stable condition.. Implants: None Anesthesia: spinal Surgeon: Emily Weiss MD Estimated blood loss (mL): 1,185 IV fluids (mL): 800 Urine output (mL): 200 Drains: Yes (Coleman) Packing: No Pathology: none sent Complications: No immediate complications Condition: stable Disposition: PACU Findings: A viable term female with 9/9 Apgars and 7 lb 13 oz wt delivered via vertex presentation. Normal uterus/tubes and ovaries.
[2020-05-07] MEDS: OXYTOCIN 30 UNITS/NS 500 ML 30 UNITS/500 ML BAG 125 UNITS IV CONT (03:20)
[2020-05-07] MEDS: MORPHINE SULFATE (*CRX) 2 MG/ML INJ 3 MG IV PUSH (04:23)
--- NOTE | 2020-05-07 05:57 | PC.NURSE ---
This patient, Marina Brown, was received from [facility] on 05/07/20 at [id number] Patient/family oriented to unit policies and routines
[2020-05-07 06:18] LABS: Rapid Plasma Reagin Non-Reactive (NonReactive)
[2020-05-07] MEDS: DEXTROSE 5%/0.45% SOD CHL 1,000 ML 125 ML IV CONT (07:03)
[2020-05-07] MEDS: KETOROLAC 30 MG/ML VIAL (*BKC) IV PUSH (07:03)
[2020-05-07] MEDS: diphenhydrAMINE HCl INJ 50 MG/ML VIAL 25 MG IV PUSH (07:04)
[2020-05-07] MEDS: DOCUSATE SODIUM 100 MG CAPSULE PO ×2 (08:58→16:37)
[2020-05-07] MEDS: METHYLERGONOVINE MALEATE 0.2 MG TABLET PO ×3 (08:58→23:53)
[2020-05-07] MEDS: HYDROcodone/acetaminophen (*CRX) 10-325 MG TABLET 1 TAB PO ×5 (09:02→23:55)
[2020-05-07] MEDS: MULTIVIT/MIN/PREN/FOL AC/IRON TABLET 1 TAB PO (09:02)
[2020-05-07] MEDS: IBUPROFEN 600 MG TABLET PO ×2 (12:06→20:07)
[2020-05-07] MEDS: RHO(D) IMMUNE GLOBULIN 300 MCG SYRINGE IM (16:35)
[2020-05-08] MEDS: HYDROcodone/acetaminophen (*CRX) 10-325 MG TABLET 1 TAB PO ×5 (05:01→21:22)
[2020-05-08] MEDS: IBUPROFEN 600 MG TABLET PO ×3 (05:01→21:23)
[2020-05-08 05:19] LABS: Basophils Absolute Auto 0.1 K/mm3 (0.0-0.1); Basophils Percent Auto 0.6 % (0.2-1.2); Eosinophils Absolute Auto 0.3 K/mm3 (0-0.3); Eosinophils Percent Auto 2.3 % (0-4.4); Hematocrit 35.9 % (37.0-47.0); Immature Granulocyte Absolute 0.08 K/mm3 (0.00-0.031); Immature Granulocyte Percent A 0.6 % (0-0.5); Lymphocytes Percent Auto 20.3 % (18.3-44.2); Mean Corpuscular HGB Conc 30.6 g/dl (32-36); Mean Corpuscular Hemoglobin 23.5 pg (26-34); Mean Corpuscular Volume 76.5 fl (80-100); Mean Platelet Volume 10.8 fl (7.4-10.4); Monocytes Absolute Auto 0.7 K/mm3 (0.1-0.6); Monocytes Percent Auto 5.1 % (2.6-8.5); Neutrophils Absolute Auto 9.8 K/mm3 (1.3-6.7); Neutrophils Percent Auto 71.1 % (45.5-73.1); Platelet Count Result 183 k/mm3 (150-375); Red Blood Count 4.69 M/mm3 (4.2-5.4); Red Cell Distribution Width 16.8 % (11.5-14.5); White Blood Count 13.8 K/mm3 (4.5-10.0)
[2020-05-08] MEDS: MULTIVIT/MIN/PREN/FOL AC/IRON TABLET 1 TAB PO (07:53)
[2020-05-08] MEDS: DOCUSATE SODIUM 100 MG CAPSULE PO ×2 (07:53→15:54)
[2020-05-08] MEDS: SIMETHICONE 80 MG TAB.CHEW PO ×2 (07:54→15:55)
[2020-05-08 08:00] VITALS: BP 112/68; PULSE 85; RESP 16; TEMP 36.8; O2SAT 100
--- NOTE | 2020-05-08 11:09 | WPDANLDNPN2 ---
Anes-Prog Note L&D-Neuraxial Date/Time: 05/08/20 11:09 Neuraxial medications: intrathecal PF morphine Opiod-related complaints: pruritis mild, no treatment Patient feedback: Patient satisfied with post-operative pain management.
--- NOTE | 2020-05-08 11:10 | WPDANLDPN2 ---
Anes-Prog Note L&D Date/Time: 05/08/20 11:10 Comfortable throughout: section Neuraxial method: spinal Epidural/Spinal procedure site: clean & non-tender Neuro status: Neuro function grossly intact. Cardiovascular status: normal Respiratory status: normal Airway patency: baseline Mental status: baseline Post-Op hydration status: normal Vital Signs: Last Vital Signs Temp 36.8 C 05/08/20 08:00 Pulse 85 05/08/20 08:00 Resp 16 05/08/20 08:00 BP 112/68 05/08/20 08:00 Pulse Ox 100 05/08/20 08:00 Pain score (VAS): 0 I/O: Intake & Output 05/07/20 05/08/20 05/08/20 23:59 07:59 15:59 Output Total 600 Balance -600 Post-procedural complaints: pruritis mild, no treatment Patient feedback: Patient satisfied with anesthetic care.
--- NOTE | 2020-05-08 12:17 | PM.OBPNVD ---
OB - PN: Subj Subjective Date/time seen: 05/08/20 12:17 Patient comments: pain well controlled, incisional pain (well controlled), tolerating diet and flatus present Narrative: Pain well controlled Tolerating regular diet Denies Fever/chills/N/V/Cp/SOB Ambulating and urinating without difficulty Lochia less than her menstrual cycle. Baby girl doing well and Bottle feeding OB - PN: Obj Data Labs CBC & Chem 7: 05/08/20 04:59 Labs: Laboratory Results - last 24 hr 05/07/20 05/08/20 01:13 04:59 WBC 13.8 H RBC 4.69 Hgb 11.0 L Hct 35.9 L MCV 76.5 L MCH 23.5 L MCHC 30.6 L RDW 16.8 H Plt Count 183 MPV 10.8 H Immature Gran % (Auto) 0.6 H Neut % (Auto) 71.1 Lymph % (Auto) 20.3 [place] % (Auto) 5.1 Eos % (Auto) 2.3 Baso % (Auto) 0.6 Lymph # (Auto) 2.80 [place] # (Auto) 0.7 H Eos # (Auto) 0.3 Baso # (Auto) 0.1 Abs Immat Gran (auto) 0.08 H Absolute Neuts (auto) 9.8 H Absolute Nucleated RBC 0.0 Nucleated RBC % 0.0 Blood Type A Negative Antibody Screen TNP Screen Negative Baby's Blood Type A pos Baby's MADELINE Negative Doses of RhIg Required 1 OB - PN A/P Assessment and Plan (1) Previous delivery, delivered: Code(s): O34.219 - Maternal care for unspecified type scar from previous delivery Status: Acute Plan day: 1 Plan: routine care Comments: encourage ambulation Bottle feeding instructed Time Spent With Patient Time: Total time spent is greater than 50% in coordination of care (as documented) at patient's floor/unit and/or counseling patient: Time with patient: 15 - 25 minutes Review of Systems Constitutional: Constitutional: Reports as per HPI, Denies chills, Denies fever(s) and Denies headache(s) Eyes: Eyes: Reports as per HPI and Denies blurry vision ENT: Reports as per HPI and Reports Normal hearing present Cardiovascular: Cardiovascular: Reports as per HPI, Denies chest pain and Denies dyspnea Respiratory: Respiratory: Reports as per HPI, Denies cough and Denies dyspnea Gastrointestinal: Gastrointestinal: Reports as per HPI Genitourinary: Genitourinary: Reports as per HPI Neurologic: Reports as per HPI and Reports Normal hearing present Psychiatric: Psychiatric: Reports as per HPI Endocrine: Endocrine: Reports no additional endocrine complaints and Reports as per HPI Exam Const: General: cooperative, healthy appearing, comfortable, no acute distress, well developed, alert, awake, Physically active and well groomed Nutritional Appearance: well nourished Orientation/consciousness: patient oriented x3 Limitations: no limitations HENMT: Head: normal to inspection Resp: Effort & Inspection: normal respiratory effort and able to speak in complete sentences Auscultation: clear to auscultation bilaterally Cardio: Rate: regular rate Rhythm: regular rhythm GI: Inspection: normal to inspection GI Palp: Yes Soft to palpation, Yes Tenderness to palpation present (GI) (appropriate for surgery) and Yes Other GI palpation findings present (Incision : C/D/I) Auscultation: normal bowel sounds Rectal Exam: deferred
--- NOTE | 2020-05-08 13:41 | PCCCNOTE ---
Care Coordination spoke with pt. this afternoon to discuss discharge planning. Pt.'s current DC plan is to return home with her , children, and in-laws. This is pt.'s 3rd child. Pt. confirms that FOB and his parents are supportive. Pt. states that she has everything she needs to safely bring baby home. Pt. has a car seat that she will bring into the hospital for RN to examine. Pt. will bottle feed baby and states she is in process of applying for WIC. At this time pt. denies any DC needs and has no concerns about bring baby home. CC received referral due to pt.'s limited care. Pt. states that she was in the middle of a move and that her car broke down that resulted in her limited care. Per Dr. Oliver's office, pt. would often schedule appointments and not return to their office for follow-ups. Pt. would also inform the office that she was getting her labs drawn but Dr. Olievr's office would contact the facility pt. went to and they would not have any record of pt. Dr. oliver's office expressed concern over pt.'s behavior and state that she also had similar behaviors with her last child in [address]. Dr. oliver scheduled a repeat for pt. on Monday and she did not show up to her appointment. Pt. informed staff that she over slept . CC called Andi at [facility] who states that they will take this as information for now. Andi confirms pt. has no prior DCFS cases. Pt.'s intake ID is [id number].
[2020-05-08 20:00] VITALS: BP 121/70; PULSE 86; RESP 16; TEMP 36.7
[2020-05-09] MEDS: HYDROcodone/acetaminophen (*CRX) 5-325 MG TABLET 1 TAB PO ×2 (04:35→12:40)
[2020-05-09] MEDS: IBUPROFEN 600 MG TABLET PO ×2 (04:35→12:40)
[2020-05-09 08:00] VITALS: BP 120/60; PULSE 90; RESP 18; TEMP 36.9; O2SAT 100
[2020-05-09] MEDS: DOCUSATE SODIUM 100 MG CAPSULE PO (08:22)
[2020-05-09] MEDS: MULTIVIT/MIN/PREN/FOL AC/IRON TABLET 1 TAB PO (08:22)
[2020-05-09] MEDS: HYDROcodone/acetaminophen (*CRX) 10-325 MG TABLET 1 TAB PO (08:22)
--- NOTE | 2020-05-09 11:14 | P.PNOB_ITS ---
OB - PN: Subj Subjective Date/time seen: 05/09/20 11:14 Patient comments: pain well controlled, tolerating diet and flatus present; no incisional pain [place] baby status: doing well and bottle feeding well [place] feeding status: exclusively bottle feeding Narrative: Pain well controlled Tolerating regular diet Ambulating and urinating without difficulty Lochis less than her menses Baby girl doing well and Bottle feeding OB - PN: Obj Data Labs CBC & Chem 7: 05/08/20 04:59 OB - PN A/P Assessment and Plan (1) Previous delivery, delivered: Code(s): O34.219 - Maternal care for unspecified type scar from previous delivery Status: Acute Plan day: 2 Plan: routine care, discharge home, follow up 6 weeks (PP exam) and other (1 week for incision checkup) Comments: Encourage ambulation Bottle feeding instructed Pt desires to be on wellbutrin 150 mg as she was on before after the delivery of previous 2 kids. Post op instruction provided. Time Spent With Patient Time: Total time spent is greater than 50% in coordination of care (as documented) at patient's floor/unit and/or counseling patient: Time with patient: 15 - 25 minutes Review of Systems Constitutional: Constitutional: Reports as per HPI, Denies chills, Denies fever(s) and Denies headache(s) Eyes: Eyes: Reports as per HPI and Denies blurry vision ENT: Reports Normal hearing present Cardiovascular: Cardiovascular: Reports as per HPI, Denies chest pain and Denies dyspnea Respiratory: Respiratory: Reports as per HPI, Denies cough and Denies dyspnea Gastrointestinal: Gastrointestinal: Reports as per HPI, Denies abdominal pain, Denies diarrhea and Denies vomiting Genitourinary: Genitourinary: Reports as per HPI Exam Const: General: cooperative, healthy appearing, comfortable, no acute distress, well developed, alert, awake and Physically active Nutritional Appearance: well nourished Orientation/consciousness: patient oriented x3 Limitations: no limitations Resp: Effort & Inspection: normal respiratory effort and able to speak in complete sentences Auscultation: clear to auscultation bilaterally Cardio: Rate: regular rate Rhythm: regular rhythm GI: Inspection: normal to inspection, non-distended and incision (C/D/I) GI Palp: Yes Soft to palpation and No Tenderness to palpation present (GI) Auscultation: normal bowel sounds Rectal Exam: deferred
--- NOTE | 2020-05-09 11:21 | PM.OBDSVD ---
DS: Admitting Diagnosis Admitting Diagnosis Admitting Diagnosis: Labor Previous section x 2 DS: Discharge Diagnosis Discharge Diagnosis (1) Previous delivery, delivered: Code(s): O34.219 - Maternal care for unspecified type scar from previous delivery Status: Acute OB - DS: Summary OB Procedures : Other (Insufficient) OB Procedures Intrapartum: low cervical, transverse OB Procedures: : None Peripartum Data Delivery Method: Section Procedures: Procedures Operation Date: 05/07/20 02:00 Actual Procedures Side Surgeon p Repeat Section Emily Weiss MD complications: none Status at Discharge Functional status at discharge: independent ambulation Overall status at discharge: patient is progressing back to baseline Time Spent with Patient Time attestation: Total time spent providing and/or coordinating discharge services: Time spent: Less than 30 minutes Exam Const: General: cooperative, healthy appearing, comfortable, no acute distress, well developed, alert, awake, Physically active and well groomed Nutritional Appearance: well nourished Orientation/consciousness: patient oriented x3 Limitations: no limitations HENMT: Head: normal to inspection and No palpable skull fracture present Ears: hearing grossly normal bilaterally Eyes: General: appearance normal, both eyes and all related structures Neck: Neck: normal visual inspection Resp: Effort & Inspection: normal respiratory effort and able to speak in complete sentences Auscultation: clear to auscultation bilaterally Cardio: Rate: regular rate Rhythm: regular rhythm GI: Inspection: normal to inspection, non-distended and incision (C/D/I) GI Palp: Yes Soft to palpation and No Tenderness to palpation present (GI) Auscultation: normal bowel sounds Rectal Exam: deferred Skin: General skin exam: normal color Neuro: General: oriented to person, oriented to place, oriented to time and patient oriented x3 Extrem: General: normal to inspection, full ROM and no calf tenderness Psych: Appearance: grossly normal Mental Status: mental status grossly normal Affect: normal affect Attitude: cooperative Thought process: Normal thought process present Thought content: Yes Normal thought content present and No Suicidality present Insight: Good insight present (Psych) Judgement: Good judgement present (Psych) Discharge Plan Discharge Attending physician on discharge: Emily Weiss Discharging Clinician: Emily Weiss Patient Disposition: Home, Self-Care Activity: may shower and pelvic rest Diet: regular Wound Care Instructions: incision open to air Patient Instructions: Antibiotic Form Stand Alone Forms: General Discharge Information Follow-up/Referrals: Sharyn Figueroa MD [Physician] - Discharge Medications: New hydrocodone-acetaminophen 5-325 mg Tablet 1 tablet PO Q3H PRN (Reason: Moderate Pain (4-6)) Qty: 25 RF: 0 docusate sodium 100 mg Capsule 100 mg PO BID Qty: 60 RF: 0 ibuprofen 600 mg Tablet 600 mg PO Q6H PRN (Reason: Cramping) Qty: 60 RF: 0 ferrous sulfate 325 mg (65 mg iron) tablet 325 mg PO BID Qty: 60 RF: 0 bupropion HCl [Wellbutrin SR] 150 mg tablet sustained-release 12 hr 150 mg PO DAILY Qty: 30 RF: 1 Continued PNV [id number] 90 mg iron- 1 mg-200 mg capsule 1 cap PO DAILY Qty: 90 RF: 0 Date of admission: 05/07/20 00:40 Primary Care Provider: Nelia,Indu Javier Admitting Provider: Sharyn Figueroa Attending physician on admission: Sharyn Figueroa Condition: Stable
[2020-05-09] MEDS: SIMETHICONE 80 MG TAB.CHEW PO (12:41)
--- NOTE | 2020-05-09 13:12 | PC.NURSE ---
Patient viewed the discharge video Mother & Baby Care, The First Two Weeks . Patient was given the opportunity and encouraged to ask questions. Patient verbalized understanding of information shared and has been given the mother/baby guide for home reference.
[2020-05-11 09:23] VITALS: BP 125/73; PULSE 87; RESP 20; TEMP 36.7; O2SAT 100
== END 2020-05-09 14:30 | disposition home or self-care (01) | DRG 540 ==
LOC: ANHLDR 01:34 → ANHOB2 08:00 → ANHLDR 05-12 08:05 → ANHOB2 05-12 08:05
PROVIDERS: Student in an Organized Health Care Education/Training Program; Admitting Provider Obstetrics & Gynecology; PCP Family Medicine; Visit Provider Obstetrics & Gynecology
DX: O34.211 Maternal care for low transverse scar from previous cesarean delivery (principal); O69.81X0 Labor and delivery complicated by cord around neck, without compression, not applicable or unspecified; O99.824 Streptococcus B carrier state complicating childbirth; Z3A.39 39 weeks gestation of pregnancy; Z37.0 Single live birth
CPT/HCPCS: 36415; 85025; 85461; 86592; 86703; 86850; 86900; 86901; 90384; A9270; G0432; J0131; J1100; J1200; J1580; J1885; J2210; J2270; J2274; J2405; J2590; J2790; J7120

== ENCOUNTER 2020-06-06 22:20 | Emergency (ER) | payer OTHER, SELFPAY ==
--- NOTE | ~2020-06-06 | XR_ITS ---
EXAMINATION: XR chest 1V INDICATION: Transient alteration of awareness TECHNIQUE: AP view of the chest is obtained. COMPARISON: None available FINDINGS: The lungs are free of acute opacities. There is no pleural effusion or pneumothorax. The ca rdiomediastinal silhouette is normal. The visualized osseous structures are unremarkable. IMPRESSION: 1. No acute cardiopulmonary abnormality. Reviewed, dictated and finalized at location A. CATION NURSE
--- NOTE | ~2020-06-06 | CT_ITS ---
EXAMINATION: CT brain wo con INDICATION: Transient alteration of awareness COMPARISON: None TECHNIQUE: Standard unenhanced head CT. The dose-length product (DLP) was 605.33 mGy-cm. The mA was a djusted according to patient size. Iterative reconstruction technique was employed. FINDINGS: There is no intracranial hemorrhage, acute infarction, or abnormal mass lesion. The ventric les are normal. There is no abnormal mass effect or midline shift. The springer-white matter differentiat ion is normal. The basal cisterns are patent. The orbits are normal. The paranasal sinuses, mastoids and calvarium are normal. IMPRESSION: 1. No acute intracranial abnormality. Reviewed, dictated and finalized at location A. ONING MIXER
--- NOTE | ~2020-06-06 | CT_ITS ---
EXAMINATION: CT facial bones wo con DATE: 06/06/2020 23:49 INDICATION: Facial pain TECHNIQUE: Computed tomography (CT) of the facial bones and maxillofacial region was performed withou t intravenous contrast. The dose-length product (DLP) was 337.24 mGy-cm. Automated exposure control a nd iterative reconstruction technique were employed. COMPARISON: None. FINDINGS: No facial bone fracture is identified. The soft tissues are unremarkable. There is mild muc osal thickening of the right maxillary sinus and ethmoidal air cells. Remaining paranasal sinuses and mastoid air cells are clear. IMPRESSION: 1. No facial bone fracture. Reviewed, dictated and finalized at location A. D MIXER IMPRESSION: 1. No facial bone fracture.
[2020-06-06 22:20] VITALS: BP 132/71; PULSE 87; RESP 18; TEMP 36.4; O2SAT 100
[2020-06-06 22:26] VITALS: O2SAT 100
--- NOTE | 2020-06-06 22:53 | ED.GENADULT ---
HPI - General Adult General Chief complaint: Seizure Stated complaint: seizure Time Seen by Provider: 06/06/20 22:42 Source: patient, family and EMS Mode of arrival: EMS History of Present Illness HPI narrative: Patient is 30 years old white female was at [employer], toys section, suddenly felt weird, looking at some toys and her brain does not registering then woke up on the ambulance stretcher. Patient's was outside with the kids in the car waiting for her, got cALLED, went inside and found his on the ground, and when she opened her eyes acted surprisingly, was incoherent for few minutes then back to normal. Patient denies having similar symptoms or history of seizure. Patient denies biting her tongue or having urine incontinence. Patient complaining of headache at the top of her head, right jaw pain and right elbow pain. History of migraine, unknown last headache, history of anxiety and depression, on lorazepam and Wellbutrin. Patient status post vaginal delivery 3 weeks ago. Currently the patient and her live with their in-laws, their cat got broken 2 months ago, basically quite a bit of stress lately. Patient denies of smoking, drinking or using drugs. Related Data Allergies Allergy/AdvReac Type Severity Reaction Status Date / Time amoxicillin Allergy Unknown Unknown Verified 06/06/20 22:28 ampicillin Allergy Unknown Unknown Verified 06/06/20 22:28 Penicillins Allergy Unknown Unknown Verified 06/06/20 22:28 Review of Systems Review of Systems: Narrative: CONSTITUTIONAL: Denies fever, chills, or sweats. EYES: Denies visual changes, redness, or discharge. ENT: Denies rhinorrhea, congestion, sore throat, or otalgia. CARDIOVASCULAR: Denies chest pain, palpitations, or edema. RESPIRATORY: Denies cough or dyspnea. GASTROINTESTINAL: Denies abdominal pain, nausea, vomiting, or diarrhea. GENITOURINARY: Denies dysuria or hematuria. SKIN: Denies rash or itching. MUSCULOSKELETAL: Denies back pain, joint pain, or myalgia. NEUROLOGIC: Denies headache, numbness, or weakness. PSYCHIATRIC: Denies anxiety or depression. [facility] Past Medical History Medical History Patient denies medical problems SROM (spontaneous rupture of membranes) Surgical History Surgical History History of Previous delivery, delivered Social History Social History Smoking status: Never smoker Alcohol intake: never Gender identity (if verbalized by the patient): Female Spiritual care concerns: No Exam Narrative: Exam Narrative: General appearance: Well-developed, well-nourished Skin: Normal color, swollen right side of upper lip and diffuse tenderness of the right jaw Head: Normocephalic, nontraumatic Eyes: Clear conjunctiva ENT: Oropharynx normal, ears normal, nose normal Neck: Supple, nontender Chest and respiratory: Airway patent, no respiratory distress, no accessory muscle use Heart: Regular rate/rhythm Abdomen: Soft, nontender, no organomegaly, quiet bowel sounds Vascular: Normal peripheral pulses, normal capillary refill. Musculoskeletal: Normal range of motion, nontender back Neurologic: Alert and oriented ?3, CLERICAL CLERK is normal as tested, no gross motor deficit Course Course Emergency Course: Stable Vital Signs Vital signs: Vital Signs Temperature 36.4 C 06/06/20 22:20 Pulse Rate 87 06/06/20 22:20 Respiratory Rate 18 06/06/20 22:20 Blood Pressure 132/71 06/06/20 22:20 Pulse Oximetry 100 06/06/20 22:20 Temperature 36.4 C 06/06/20 22:20 Pulse Rate 101 H 05/19
--- NOTE | 2020-06-06 23:00 | ECG_ITS ---
Measurements Intervals Joiner Rate: 80 P: 64 AR: 149 QRS: 75 QRSD: 90 T: 7 QT: 367 QTc: 424 Interpretive Statements SINUS RHYTHM BORDERLINE ST ABNORMALITY- INFERIOR LEADS BORDERLINE ECG Electronically Signed On 06-07-2020 7:42:14 LOCKSTITCH MACHINE OPERATOR by Ar Norman D.O.
[2020-06-06 23:15] LABS: Glucose Point of Care 101 (65-105)
[2020-06-06 23:23] LABS: Basophils Absolute Auto 0.1 K/mm3 (0.0-0.1); Basophils Percent Auto 0.9 % (0.2-1.2); Eosinophils Absolute Auto 0.3 K/mm3 (0-0.3); Eosinophils Percent Auto 3.8 % (0-4.4); Hematocrit 40.1 % (37.0-47.0); Hemoglobin 12.4 g/dL (12.0-15.0); Immature Granulocyte Absolute 0.01 K/mm3 (0.00-0.031); Immature Granulocyte Percent A 0.1 % (0-0.5); Lymphocytes Absolute Auto 2.48 K/mm3 (0.9-3.2); Lymphocytes Percent Auto 31.5 % (18.3-44.2); Mean Corpuscular HGB Conc 30.9 g/dl (32-36); Mean Corpuscular Hemoglobin 23.7 pg (26-34); Mean Corpuscular Volume 76.7 fl (80-100); Mean Platelet Volume 9.9 fl (7.4-10.4); Monocytes Absolute Auto 0.6 K/mm3 (0.1-0.6); Monocytes Percent Auto 7.6 % (2.6-8.5); Neutrophils Absolute Auto 4.4 K/mm3 (1.3-6.7); Neutrophils Percent Auto 56.1 % (45.5-73.1); Platelet Count Result 293 k/mm3 (150-375); Red Blood Count 5.23 M/mm3 (4.2-5.4); White Blood Count 7.9 K/mm3 (4.5-10.0)
[2020-06-06 23:27] LABS: Alveolar/Arterial O2 Gradient 9.4 mmHg; Base Excess ABG -3.2 mEq/l (+/-2.0); Device ROOM AIR; Fractional Inspired Oxygen 21 %; HCO3 ABG 20.7 mEq/l (22.0-26.0); Oxygen Content ABG 17.9 %vol (16.0-22.0); Oxygen Saturation ABG 97.6 % (95.0-100.0); Oxyhemoglobin 95.9 % THb (90.0-100.0); PCO2 ABG 33.8 mmHg (35.0-45.0); PO2 ABG 99.9 mmHg (80.0-100.0); PO2 FiO2 Ratio Arterial Blood 4.76 %; Site Drawn RIGHT BRACHIAL; Total Hemoglobin 13.2 g/dL (12.0-18.0); pH ABG 7.405 (7.350-7.450)
[2020-06-06 23:29] VITALS: BP 125/79; PULSE 87
[2020-06-06 23:30] VITALS: BP 123/86; BP 135/90; PULSE 101; PULSE 98
[2020-06-06 23:33] LABS: Prothrombin Time 13.4 Seconds (11.1-14.7)
[2020-06-06 23:36] LABS: Alanine Aminotransferase 16 U/L (4-35); Albumin Level 4.4 g/dL (3.5-5.1); Alkaline Phosphatase 77 U/L (38-126); Anion Gap 10 mmol/L (8-16); Aspartate Amino Transferase 17 U/L (14-36); Bilirubin,Total 0.6 mg/dL (0.2-1.3); Blood Urea Nitrogen 17 mg/dL (7-17); Calcium 9.2 mg/dL (8.4-10.2); Carbon Dioxide 21 mmol/L (22-30); Chloride 109 mmol/L (98-107); Estimated CRCL calculation 92 ml/min; Estimated Glomerular Filt Rate > 60; Glucose 89 mg/dL (65-105); Potassium 3.7 mmol/L (3.4-5.0); Sodium 140 mmol/L (137-145)
--- NOTE | 2020-06-06 23:36 | PC.NURSE ---
Patient being taken to radiology.
[2020-06-07 01:00] VITALS: BP 115/77; PULSE 82; RESP 20; O2SAT 99
== END 2020-06-07 01:06 | disposition home or self-care (01) ==
PROVIDERS: Emergency Provider Emergency Medicine; PCP Family Medicine
DX: O90.89 Other complications of the puerperium, not elsewhere classified (principal); R55 Syncope and collapse; O99.345 Other mental disorders complicating the puerperium; F41.9 Anxiety disorder, unspecified; F32.9 Major depressive disorder, single episode, unspecified; R94.31 Abnormal electrocardiogram [ECG] [EKG]
CPT/HCPCS: 36415; 36600; 70450; 70486; 71045; 80053; 82805; 82948; 84443; 85025; 85610; 85730; 93005; 99284

== ENCOUNTER 2021-06-13 14:07 | Inpatient (IN) | payer OTHER, SELFPAY ==
[2021-06-13] VITALS (68 sets, daily range): BP systolic 81–155; BP diastolic 26–128; PULSE 64–193; RESP 12–18; TEMP 36.6–37.2; O2SAT 98–100; BMI 28.4
--- OUTSIDE RECORDS SUMMARY | 2021-06-13 14:19 | XMS_ITS ---
:1990 Author Care Team Providers Name Role Phone TELMA WINN MD Primary Care Provider [phone] Allergies Notes: Cillins medications Medications Name Status Start Date Stop Date ? ? bupropion HCl SR 150 mg tablet,12 hr sustained-release Completed ? 02/03/2021 TAKE 1 TABLET BY MOUTH DAILY lnhydmungu-tceyxzcwzrdzq-gmpqpcni 50 Active ? Not available mg-300 mg-40 mg capsule clonazepam 0.5 mg tablet Completed ? 021 TAKE 1/2 TO 1 TABLET BY MOUTH EVERY DAY NEEDED DOK 100 mg capsule Completed ? 02/03/2021 TAKE ONE CAPSULE BY MOUTH TWICE DAILY FeroSul 325 mg (65 mg iron) tablet Completed ? 02/03/2021 TAKE 1 TABLET BY MOUTH TWICE DAILY fluconazole 150 mg tablet Active ? Not av ailable TAKE 1 TABLET BY MOUTH 1 TIME hydrocodone 5 mg-acetaminophen 325 mg tablet Completed ? 02/03/2021 TAKE 1 TABLET BY MOUTH EVERY 3 HOURS NEEDED FOR MODERATE MARILIN N hydroxyzine HCl 25 mg tablet Completed ? TAKE 1 TABLET BY MOUTH THREE TIMES DAILY NEEDED ibuprofen 600 mg tablet Completed ? 02/04/20 21 TAKE 1 TABLET BY MOUTH EVERY 6 HOURS NEEDED FOR CRAMPING norethindrone 1 mg-ethin. estradiol 20 mcg (24)-iron 7 5 mg (4) capsule Completed ? 02/03/2021 TAKE 1 CAPSULE BY MOUTH DAILY Active ? Not available Problems None recorded. Procedures Date Name Performed by ? 05/07/2020 Section Information not avai lable 09/13/2018 Section Information not avai lable
--- OUTSIDE RECORDS SUMMARY | 2021-06-13 14:19 | XMS_ITS ---
:1990 Author Care Team Providers Name Role Phone Indu Pickens Primary Care Provider Unavailable Allergies Code Code System Name Reaction Severity Status Onset 723 RxNorm Amoxicillin Hives ? Active ? 03643 RxNorm Amcinonide ? ? Deactivated ? Medications Name Status Start Date Stop Date ? ? azithromycin 250 mg tablet Completed ? 09/10 bupropion HCl SR 150 mg tablet,12 hr sustained-release Active ? Not available TAKE 1 TABLET BY MOUTH DAILY bupropion HCl XL 150 mg 24 hr tablet, extended release Completed ? 08/12/2019 TK 1 T PO QHS bupropion HCl XL 300 mg 24 hr tablet, extended release Completed ? 08/12/2019 TK 1 T PO QD buspirone 10 mg tablet Completed ? 0 TK 1 T PO BID PRN buspirone 15 mg tablet Active ? Not avail able TK 1 T PO BID PRN buspirone 5 mg tablet Active ? Not availa ble ysjekznmwy-sbfwkxjtxbhum-nddmiyfs 50 Active ? Not available mg-300 mg-40 mg capsule clindamycin HCl 300 mg capsule Active ? N ot available TK 1 C PO Q 6 H FOR 7 DAYS clonazepam 0.5 mg tablet Active ? Not patricia ilable TAKE 1/2 TO 1 TABLET BY MOUTH EVERY DAY NEEDED cyanocobalamin (vit B-12) 1,000 mcg sublingual tablet Active ? Not available Place 1 tablet every day by sublingual route. DOK 100 mg capsule Active ? Not available TAKE ONE CAPSULE BY MOUTH TWICE DAILY escitalopram 10 mg tablet Completed ? 2019 escitalopram 20 mg tablet Active
[2021-06-13] MEDS: LACTATED RINGERS 1,000 ML 125 ML IV CONT ×2 (14:40→15:05)
--- NOTE | 2021-06-13 14:41 | LDADM ---
This patient, Marina Brown, was admitted to Labor/Delivery/Recovery 120 on 06/13/21 at 14:07. Plans for labor, pain management and were discussed with patient. Patient/family oriented to hospital policies and general routines including ID bracelet, bed and alarms, visiting hours, pain management, procedures, bathroom and other care routines, personal items, smoking policy, room service/diet and guest tray routines, security routines, and visiting hours. Patient/Family are encouraged to report perceived risks to care and to ask questions if they do not understand what they are told or what they should do. See OBIX for further documentation.
[2021-06-13 14:42] LABS: Basophils Percent Auto 0.5 % (0.2-1.2); Eosinophils Absolute Auto 0.1 K/mm3 (0-0.3); Hematocrit 38.7 % (37.0-47.0); Hemoglobin 11.7 g/dL (12.0-15.0); Immature Granulocyte Absolute 0.05 K/mm3 (0.00-0.031); Immature Granulocyte Percent A 0.6 % (0-0.5); Immature Platelet Fraction Pct 10.5 % (0.9-11.2); Lymphocytes Absolute Auto 1.84 K/mm3 (0.9-3.2); Lymphocytes Percent Auto 21.1 % (18.3-44.2); Mean Corpuscular HGB Conc 30.2 g/dl (32-36); Mean Corpuscular Hemoglobin 22.7 pg (26-34); Mean Corpuscular Volume 75.1 fl (80-100); Mean Platelet Volume 11.7 fl (7.4-10.4); Monocytes Absolute Auto 0.7 K/mm3 (0.1-0.6); Monocytes Percent Auto 7.7 % (2.6-8.5); Neutrophils Percent Auto 69.1 % (45.5-73.1); Platelet Count Result 176 k/mm3 (150-375); Red Blood Count 5.15 M/mm3 (4.2-5.4); Red Cell Distribution Width 18.2 % (11.5-14.5); White Blood Count 8.7 K/mm3 (4.5-10.0)
[2021-06-13] MEDS: GENTAMICIN SULFATE INJ 325 MG in DEXTROSE 5% 100 ML 108.13 MG IVPB (15:05)
--- NOTE | 2021-06-13 15:10 | PM.IMHP ---
H&P: HPI History of Present Illness Date/Time: 06/13/21 15:10 Chief Complaint: labor, 3 prior CS Narrative: Marina Brown is a 31yo at 39w who presented in active labor. She only had one visit this at 26w. She did not do her labs, glucose, GBS. She has 3 prior CS. Short interval , her youngest was a CS 04/2020. She has anxiety. She states she was mad at previous doctor for not having her sign tubal form correctly so she couldn't get tubes tied so she didn't present for care. She is, however, asking for a tubal today. No form was signed. Review of Systems Review of Systems: All systems reviewed & are unremarkable except as noted in HPI and below PMFSH Past Medical History Medical History Patient denies medical problems SROM (spontaneous rupture of membranes) Surgical History Surgical History History of Previous delivery, delivered Social History Social History Smoking status: Never smoker Alcohol intake: never Substance use: unknown Gender identity (if verbalized by the patient): Female Spiritual care concerns: No Meds Home Medications and Allergies Home Medications Medication Instructions Recorded Confirmed Type vitamin no.102-iron 90 1 cap PO DAILY #90 cap 09/19/19 05/07/20 Rx mg-folate 1 mg-dha 200 mg capsule bupropion HCl [Wellbutrin SR] 150 mg PO DAILY #30 tablet 05/09/20 Rx ferrous sulfate 325 mg PO BID #60 tablet 05/09/20 Rx ibuprofen 600 mg PO Q6H PRN #60 tablet 05/09/20 Rx norethindrone 1 mg-ethin. See Rx Instructions .ROUTE 07/27/20 Rx estradiol 20 mcg (24)-iron 75 mg .COMPLEX #84 capsule (4) capsule Allergies Allergy/AdvReac Type Severity Reaction Status Date / Time amoxicillin Allergy Unknown Unknown Verified 06/09/20 12:54 ampicillin Allergy Unknown Unknown Verified 06/09/20 12:54 Penicillins Allergy Unknown Unknown Verified 06/09/20 12:54 Vital Signs Vital Signs - 24 hr 06/13/21 14:36 06/13/21 14:38 06/13/21 14:41 Pulse Rate 73 Blood Pressure 131/76 Pulse Oximetry 99 100 06/13/21 14:45 06/13/21 14:46 06/13/21 14:50 Pulse Rate 88 93 84 Blood Pressure 128/72 131/75 133/74 Pulse Oximetry 100 06/13/21 14:51 06/13/21 14:52 06/13/21 14:54 Pulse Rate 90 85 98 Blood Pressure 124/73 116/85 129/64 Pulse Oximetry 100 06/13/21 14:56 06/13/21 14:57 06/13/21 15:01 Pulse Rate 177 H 115 H Blood Pressure 155/128 H 119/26 L Pulse Oximetry 100 100 06/13/21 15:03 06/13/21 15:06 Pulse Rate 119 H 111 H Blood Pressure 126/69 115/56 L Pulse Oximetry 100 Exam Const: General: no acute distress Resp: Effort & Inspection: normal respiratory effort Auscultation: clear to auscultation bilaterally Cardio: Rate: regular rate Rhythm: regular rhythm GI: GI Palp: Yes Soft to palpation Extrem: General: normal to inspection H&P: Results Labs Labs: Short CBC 06/13/21 Range/Units 14:35 WBC 8.7 (4.5-10.0) K/mm3 Hgb 11.7 L (12.0-15.0) g/dL Hct 38.7 (37.0-47.0) % Plt Count 176 (150-375) k/mm3 Assessment and Plan Assessment and plan (1) Insufficient care in third trimester: Code(s): O09.33 - Supervision of with insufficient care, third trimester Status: Acute (2) Previous section: Code(s): Z98.891 - History of uterine scar from previous surgery Status: Acute Additional Plan Plan Repeat CS Discussed RBA, pt consented, all questions answered. Discussed cannot do tubal since form not signed since only had one visit. Discussed LSC tubal or vasectomy UDS urine GCT PNL will proceed.
--- NOTE | 2021-06-13 15:15 | WPDHPUPDATE1 ---
History and Physical Update Update Date/Time: 06/13/21 15:15 History and Physical has been reviewed, including an updated exam of the patient. There are NO changes in the patient's condition. Risks, benefits, and alternatives have been discussed and questions answered. Patient agrees to proceed with procedure.
--- NOTE | 2021-06-13 16:05 | P.PCNOB_ITS ---
OB - Delivery Note Procedure Delivery date: 06/13/21 Procedure: Procedures Operation Date: 06/13/21 15:10 <No data on this case meets the specified criteria> repeat low transverse section Events: No Care (one visit only) Route of delivery: Specimen: Yes (placenta) Quantitative Blood Loss (ml): 560 Anesthesia type: Spinal Disposition: floor Complications: uterine window noted Narrative: The patient was taken to the OR and received spinal anesthesia. She was placed in dorsal supine position with left lateral tilt. SCDs and robles were placed. She was prepped and draped in the normal sterile fashion. A Pfannensteil skin incision was made and carried through to the underlying layer of fascia. The fascia was incised in the midline and then extended laterally using Vera scissors. The muscles were in the midline and the peritoneum was entered bluntly. The peritoneal incision was extended inferiorly and superiorly with care to avoid the bladder. The bladder blade was then inserted, the vesicouterine peritoneum was grasped, incised with Metzenbaum scissors, and a bladder flap created. The bladder blade was reinserted. A uterine window was noted 5cm long and 2cm wide. The low transverse incision was made but the uterine cavity was entered immediately. It was extended bluntly. AROM was performed and fluid was noted to be clear. The head was delivered, followed by the remainder of the baby. The baby's oropharynx was suctioned. After 30 seconds, the cord was clamped and cut and the was handed off. Cord blood was obtained and the placenta was then removed manually. The uterus was exteriorized. A moist lap sponge was used to curette the endometrium. The uterine incision was then closed with one layer of 0-Vicryl in a running, locking fashion. Good hemostasis was noted. The posterior cul de sac was irrigated with normal saline and cleared of all clot and debris. The uterus was returned to the abdomen. Both lateral gutters were then irrigated. The rectus muscles were inspected and found to be hemostatic. The fascia was reapproximated using 0-Vicryl in running fashion. The subcutaneous tissue was irrigated with normal saline and made hemostatic with Bovie electrocautery. The subcutaneous tissue was reapproximated with a layer of running 2-0 plain gut. The skin was then closed with absorbable esperanza. Steri strips and a bandage were applied. The uterus was evacuated. The patient tolerated the procedure very well. All counts were correct. She was taken to the recovery room in good condition. [place] Baby Date of : 06/13/21 Time of : 15:36 Weeks of gestation at delivery: 39 Infant gender: Male Weight (pounds): 8 Weight (ounces): 4 presentation: vertex Placenta delivery description: Manual Removal Cord Vessel Description: 3 Vessels and Clamped/Cut score one minute: 9 score five minutes: 9
[2021-06-13 16:11] LABS: HIV 1/2 Ab P24 Ag Result Negative (Negative)
[2021-06-13] MEDS: miSOPROStol 200 MCG TABLET RECTAL (16:55)
[2021-06-13 17:08] LABS: Amphetamine Screen Urine Negative (Negative); Barbiturate Screen Urine Negative (Negative); Benzodiazepines Screen Urine Negative (Negative); Cannabinoid Screen Urine Positive (Negative); Cocaine Screen Urine Negative (Negative); Methadone Screen Urine Negative (Negative); Opiate Screen Urine Positive (Negative); Phencyclidine Screen Urine Negative (Negative)
[2021-06-13] MEDS: MORPHINE SULFATE INJ (*CRX) 10 MG/ML AMP 3 MG IV PUSH ×2 (17:09→17:35)
--- NOTE | 2021-06-13 17:40 | PC.NURSE ---
Notified Dr. Saxena of positive UDS results, order for social service consult given.
[2021-06-13] MEDS: OXYTOCIN 30 UNITS/NS 500 ML 30 UNITS/500 ML BAG 125 UNITS IV CONT (17:45)
[2021-06-13] MEDS: KETOROLAC 30 MG/ML VIAL (*BKC) IV PUSH (18:27)
[2021-06-13] MEDS: HYDROcodone/acetaminophen (*CRX) 5-325 MG TABLET 1 TAB PO ×2 (19:51→22:54)
[2021-06-13 20:44] LABS: Hepatitis B Surface Antigen Negative (Negative); Rubella IgG Antibody 9.2 IU/ML
[2021-06-13] MEDS: DEXTROSE 5%/0.45% SOD CHL 1,000 ML 125 ML IV CONT (21:34)
[2021-06-13] MEDS: diphenhydrAMINE HCl INJ 50 MG/ML VIAL 25 MG IV PUSH (21:39)
[2021-06-14] MEDS: KETOROLAC 30 MG/ML VIAL (*BKC) IV PUSH (02:38)
[2021-06-14] MEDS: HYDROcodone/acetaminophen (*CRX) 5-325 MG TABLET 1 TAB PO ×2 (02:39→07:19)
[2021-06-14 04:35] VITALS: BP 100/60; PULSE 66; RESP 16; TEMP 36.9; O2SAT 97
[2021-06-14 05:03] LABS: Basophils Percent Auto 0.3 % (0.2-1.2); Eosinophils Percent Auto 0.2 % (0-4.4); Immature Granulocyte Absolute 0.03 K/mm3 (0.00-0.031); Immature Granulocyte Percent A 0.3 % (0-0.5); Immature Platelet Fraction Pct 10.4 % (0.9-11.2); Lymphocytes Absolute Auto 1.38 K/mm3 (0.9-3.2); Lymphocytes Percent Auto 15.6 % (18.3-44.2); Mean Corpuscular Hemoglobin 23.4 pg (26-34); Mean Corpuscular Volume 75.3 fl (80-100); Monocytes Absolute Auto 0.6 K/mm3 (0.1-0.6); Monocytes Percent Auto 6.8 % (2.6-8.5); Neutrophils Absolute Auto 6.8 K/mm3 (1.3-6.7); Neutrophils Percent Auto 76.8 % (45.5-73.1); Platelet Count Result 137 k/mm3 (150-375); Red Blood Count 3.85 M/mm3 (4.2-5.4); Red Cell Distribution Width 17.5 % (11.5-14.5); White Blood Count 8.9 K/mm3 (4.5-10.0)
[2021-06-14] MEDS: DOCUSATE SODIUM 100 MG CAPSULE PO ×2 (07:19→16:56)
[2021-06-14] MEDS: POLYSACCHARIDE IRON COMPLEX 150 MG CAPSULE PO ×2 (07:19→16:56)
[2021-06-14 07:50] VITALS: BP 110/65; PULSE 85; RESP 16; TEMP 36.7; O2SAT 98
--- NOTE | 2021-06-14 07:55 | PM.OBPNVD ---
OB - PN: Subj Subjective Date/time seen: 06/14/21 07:55 Patient comments: no complaints and pain well controlled baby status: doing well [place] feeding status: exclusively bottle feeding Narrative: POD 1 from primary CS. Doing well. Normal lochia. Eating, ambulating, robles out. Wants to start med for anx/dep since had it bad with last one. SO far ok though. OB - PN: Obj Data Labs CBC & Chem 7: 06/14/21 04:06 Labs: Laboratory Results - last 24 hr 06/13/21 06/13/21 06/13/21 14:35 14:35 15:14 WBC 8.7 RBC 5.15 Hgb 11.7 L Hct 38.7 MCV 75.1 L MCH 22.7 L MCHC 30.2 L RDW 18.2 H Plt Count 176 MPV 11.7 H Immature Gran % (Auto) 0.6 H Neut % (Auto) 69.1 Lymph % (Auto) 21.1 [place] % (Auto) 7.7 Eos % (Auto) 1.0 Baso % (Auto) 0.5 Lymph # (Auto) 1.84 [place] # (Auto) 0.7 H Eos # (Auto) 0.1 Baso # (Auto) 0.0 Abs Immat Gran (auto) 0.05 H Absolute Neuts (auto) 6.0 Absolute Nucleated RBC 0.0 Nucleated RBC % 0.0 % Immature Plt Fraction 10.5 Urine Opiates Screen Positive A Urine Methadone Screen Negative Ur Barbiturates Screen Negative Ur Phencyclidine Scrn Negative Ur Amphetamine Screen Negative U Benzodiazepines Scrn Negative Urine Cocaine Screen Negative U Cannabinoids Screen Positive A Hep Bs Antigen HIV 1&2 Ab/P24 Ag 4thGn Rubella IgG Antibody Trichomonas Direct ID Blood Type A Negative Antibody Screen Negative Baby's Blood Type Baby's MADELINE 06/13/21 06/13/21 06/13/21 15:14 15:14 18:15 WBC RBC Hgb Hct MCV MCH MCHC RDW Plt Count MPV Immature Gran % (Auto) Neut % (Auto) Lymph % (Auto) [place] % (Auto) Eos % (Auto) Baso % (Auto) Lymph # (Auto) [place] # (Auto) Eos # (Auto) Baso # (Auto) Abs Immat Gran (auto) Absolute Neuts (auto) Absolute Nucleated RBC Nucleated RBC % % Immature Plt Fraction Urine Opiates Screen Urine Methadone Screen Ur Barbiturates Screen Ur Phencyclidine Scrn Ur Amphetamine Screen U Benzodiazepines Scrn Urine Cocaine Screen U Cannabinoids Screen Hep Bs Antigen Negative HIV 1&2 Ab/P24 Ag 4thGn Negative Rubella IgG Antibody 9.2 L Trichomonas Direct ID Cancelled Blood Type Antibody Screen Baby's Blood Type Baby's MADELINE 06/14/21 06/14/21 04:06 05:18 WBC 8.9 RBC 3.85 L Hgb 9.0 L Hct 29.0 L MCV 75.3 L MCH 23.4 L MCHC 31.0 L RDW 17.5 H Plt Count 137 L MPV 12.0 H Immature Gran % (Auto) 0.3 Neut % (Auto) 76.8 H Lymph % (Auto) 15.6 L [place] % (Auto) 6.8 Eos % (Auto) 0.2 Baso % (Auto) 0.3 Lymph # (Auto) 1.38 [place] # (Auto) 0.6 Eos # (Auto) 0.0 Baso # (Auto) 0.0 Abs Immat Gran (auto) 0.03 Absolute Neuts (auto) 6.8 H Absolute Nucleated RBC 0.0 Nucleated RBC % 0.0 % Immature Plt Fraction 10.4 Urine Opiates Screen Urine Methadone Screen Ur Barbiturates Screen Ur Phencyclidine Scrn Ur Amphetamine Screen U Benzodiazepines Scrn Urine Cocaine Screen U Cannabinoids Screen Hep Bs Antigen HIV 1&2 Ab/P24 Ag 4thGn Rubella IgG Antibody Trichomonas Direct ID Blood Type A Negative Antibody Screen TNP Baby's Blood Type A pos Baby's MADELINE Negative OB - PN A/P Assessment and Plan (1) delivery delivered: Code(s): O82 - Encounter for delivery without indication Status: Acute (2) Limited care in third trimester: Code(s): O09.33 - Supervision of with insufficient care, third trimester Status: Acute (3) History of depression: Code(s): Z87.59 - Personal history of other complications of , childbirth and the puerperium; Z86.59 - Personal history of other mental and behavioral disorders Status: Acute Plan day: 1 Plan: routin
[2021-06-14 08:04] LABS: Rapid Plasma Reagin Non-Reactive (NonReactive)
[2021-06-14] MEDS: FLUoxetine HCL 10 MG CAPSULE PO (09:10)
[2021-06-14] MEDS: MULTIVIT/MIN/PREN/FOL AC/IRON TABLET 1 TAB PO (09:10)
[2021-06-14] MEDS: IBUPROFEN 600 MG TABLET PO ×3 (10:25→23:57)
[2021-06-14] MEDS: HYDROcodone/acetaminophen (*CRX) 10-325 MG TABLET 1 TAB PO ×5 (10:25→23:57)
[2021-06-14] MEDS: SIMETHICONE 80 MG TAB.CHEW PO ×5 (10:27→23:57)
[2021-06-14 11:34] VITALS: BP 97/60; PULSE 97; RESP 16; TEMP 36.6; O2SAT 99
--- NOTE | 2021-06-14 11:38 | PCCCNOTE ---
Care Coordination met with pt. and FOB this morning to discuss discharge planning. Pt.'s current D/C plan is to return home with her family including her 3 young children. Pt. states her children are currently with her [facility]. Pt. confirms she has everything needed to safely bring baby home such has a car seat. Pt. will bottle feed baby at time of D/C. Pt. tested positive for Marijuana and opiates at time of admission. Pt. states she used Marijuana to assist with symptoms such as pain, nausea, and lack of appetite. Pt. states she tested positive for opiates because she used her prescribed Tylenol with coding for back pain. Pt.'s has brought prescription bottle into hospital. CC informed pt. and FOB that the drug use will have to be reported. Baby tested positive for Opiates and has pending meconium. Pt. and FOB state understanding. CC spoke with Mel Rod who states an investigation will be done since pt. used a prescription that was not hers. Mel states someone will see pt. and baby within 24 hours [facility] at [facility]. CC has requested DCFS give call prior to arriving. RN has been informed and will inform pt. and FOB. Intake ID [id number]. Will follow.
--- NOTE | 2021-06-14 12:14 | WPDANLDPN2 ---
Anes-Prog Note L&D Date/Time: 06/14/21 12:14 Comfortable throughout: section Neuraxial method: spinal Epidural/Spinal procedure site: clean & non-tender Neuro status: Neuro function grossly intact. Cardiovascular status: normal Respiratory status: normal Airway patency: baseline Mental status: baseline Post-Op hydration status: normal Vital Signs: Last Vital Signs Temp 36.6 C 06/14/21 11:34 Pulse 97 06/14/21 11:34 Resp 16 06/14/21 11:34 BP 97/60 L 06/14/21 11:34 Pulse Ox 99 06/14/21 11:34 Pain score (VAS): 0 I/O: Intake & Output 06/13/21 06/14/21 06/14/21 23:59 07:59 15:59 Intake Total 500 800 Output Total 1255 875 600 Balance -755 -75 -600 Post-procedural complaints: none Patient feedback: Patient satisfied with anesthetic care.
--- NOTE | 2021-06-14 12:14 | WPDANLDNPN2 ---
Anes-Prog Note L&D-Neuraxial Date/Time: 06/14/21 12:14 Neuraxial medications: intrathecal PF morphine Opiod-related complaints: none Patient feedback: Patient satisfied with post-operative pain management.
[2021-06-14] MEDS: RHO(D) IMMUNE GLOBULIN 300 MCG/2 ML SYRINGE IM (13:20)
--- NOTE | 2021-06-14 16:00 | PC.NURSE ---
[facility] showcase maker Paola De La O here to see parents. She will go tomorrow to see the other children and do a home visit with the father. Infant should not be released to the parents until we hear back from [facility]. Paola aware that will be monitored for withdraw for [address] Rincon.
--- NOTE | 2021-06-14 17:30 | PC.NURSE ---
Patient upset about DCFS visit, she states she feels stressed and wants to make sure everything is okay with baby. She states taking the opiates was a freak accident . We started her Prozac this morning per Dr. Saxena and she requests something to help her sleep tonight. Her significant other suggests she take the Ambien that has been ordered for her now, at 1715. Suggested that she eat dinner and troncoso with baby and when the night nurse comes in they can discuss a good time to take the Ambien. Patient is tearful but agrees that it's best she eats dinner first. The significant other is going to be going home tonight and it was suggested that the patient not room in with baby if she is going to take Ambien. It would be best if her nurse tonight takes baby while she rests for awhile. Patient agrees.
[2021-06-14 19:18] VITALS: BP 129/74; PULSE 76; RESP 18; TEMP 36.6
[2021-06-14] MEDS: ZOLPIDEM TARTRATE (*CRX) 5 MG TABLET PO (20:03)
[2021-06-15] MEDS: HYDROcodone/acetaminophen (*CRX) 5-325 MG TABLET 1 TAB PO ×2 (02:58→22:08)
[2021-06-15] MEDS: SIMETHICONE 80 MG TAB.CHEW PO ×6 (03:00→22:07)
[2021-06-15] MEDS: HYDROcodone/acetaminophen (*CRX) 10-325 MG TABLET 1 TAB PO ×5 (05:06→18:47)
[2021-06-15] MEDS: MEASLES,MUMPS,RUBELLA VACCINE 0.5 ML VIAL SUB-Q (07:27)
[2021-06-15 07:45] VITALS: BP 108/64; PULSE 76; RESP 16; TEMP 36.3; O2SAT 99
--- NOTE | 2021-06-15 07:54 | P.PNOB_ITS ---
OB - PN: Subj Subjective Date/time seen: 06/15/21 07:54 Patient comments: no complaints, pain well controlled, tolerating diet and flatus present [place] baby status: doing well OB - PN: Obj Data Labs CBC & Chem 7: 06/14/21 04:06 Labs: Laboratory Results - last 24 hr 06/13/21 06/14/21 14:35 05:18 RPR Non-reactive Blood Type A Negative Antibody Screen TNP Screen Negative Baby's Blood Type A pos Baby's MADELINE Negative Doses of RhIg Required 1 OB - PN A/P Plan day: 2 Plan: routine care Time Spent With Patient Time: Total time spent is greater than 50% in coordination of care (as documented) at patient's floor/unit and/or counseling patient: Time with patient: less than 15 minutes Review of Systems Review of Systems: All systems reviewed & are unremarkable except as noted in HPI and below Exam Narrative: Fundus firm. Vaginal flow controlled. Incision dry and intact. Negative homans. No redness, warmth, or pain of lower ext. Const: General: comfortable Chest: Breast/axilla inspection: normal inspection of the breasts Resp: Effort & Inspection: normal respiratory effort Auscultation: clear to auscultation bilaterally Cardio: Rate: regular rate GI: GI Palp: Yes Soft to palpation Psych: Appearance: grossly normal Affect: normal affect Attitude: cooperative Thought content: Yes Normal thought content present Judgement: Good judgement present (Psych)
[2021-06-15] MEDS: DOCUSATE SODIUM 100 MG CAPSULE PO ×2 (07:56→15:10)
[2021-06-15] MEDS: POLYSACCHARIDE IRON COMPLEX 150 MG CAPSULE PO ×2 (07:56→15:10)
[2021-06-15] MEDS: IBUPROFEN 600 MG TABLET PO ×3 (07:57→22:07)
[2021-06-15] MEDS: FLUoxetine HCL 10 MG CAPSULE PO (07:57)
[2021-06-15] MEDS: TETANUS,DIPHTHERIA,AC PERTUSSIS ADULT (0.5 ML) BOOSTRIX IM (07:59)
[2021-06-15 19:26] VITALS: BP 103/64; PULSE 88; RESP 16; TEMP 36.7; O2SAT 100
[2021-06-15] MEDS: ZOLPIDEM TARTRATE (*CRX) 5 MG TABLET PO (22:12)
[2021-06-16] MEDS: HYDROcodone/acetaminophen (*CRX) 10-325 MG TABLET 1 TAB PO ×5 (01:28→16:10)
[2021-06-16] MEDS: SIMETHICONE 80 MG TAB.CHEW PO ×5 (01:32→16:08)
--- NOTE | 2021-06-16 07:47 | PM.OBPNVD ---
OB - PN: Subj Subjective Date/time seen: 06/16/21 07:47 Patient comments: no complaints and pain well controlled baby status: doing well Narrative: Doing well. Will be staying as guest as baby staying for pos UDS for opiates. she states she only took one T3. She is requesting ambien also on DC. OB - PN: Obj Data Labs CBC & Chem 7: 06/14/21 04:06 OB - PN A/P Assessment and Plan (1) delivery delivered: Code(s): O82 - Encounter for delivery without indication Status: Acute (2) Insufficient care in third trimester: Code(s): O09.33 - Supervision of with insufficient care, third trimester Status: Acute Plan day: 3 Plan: routine care and discharge home Comments: DC instructions discussed no ambien- risk of SIDS and virtually no care with pos UDS for opiates. strongly encouraged pp follow up. Time Spent With Patient Time: Total time spent is greater than 50% in coordination of care (as documented) at patient's floor/unit and/or counseling patient: Exam Narrative: NAD abdomen soft, appropriately tender, incision CDI Extremities nontender with 1+ edema
--- NOTE | 2021-06-16 07:52 | P.DS_ITS ---
DS: Admitting Diagnosis Discharge Date 06/16/21 Admitting Diagnosis term IUP, insufficient care, prior CS x3, labor DS: Discharge Diagnosis Discharge Diagnosis (1) delivery delivered: Code(s): O82 - Encounter for delivery without indication Status: Acute (2) Insufficient care in third trimester: Code(s): O09.33 - Supervision of with insufficient care, third trimester Status: Acute OB - DS: Summary Hospital Course Hospital Course: Pt presented in labor with 3 prior CS. She only had on visit. Her CS was uncomplicated. Her pp course was uncomplicated except she was pos for opiates. DCFS was involved. She was DCed home on POD 3 in stable condition. OB Procedures : Ultrasound OB Procedures Intrapartum: OB Procedures: : None Peripartum Data Infant Delivery Method: Section Procedures: Procedures Operation Date: 06/13/21 15:10 Actual Procedure Side Surgeon p Section Bilateral Karon Saxena MD complications: none Status at Discharge Functional status at discharge: independent ambulation Time Spent with Patient Time attestation: Total time spent providing and/or coordinating discharge se rvices: Exam Narrative: NAD abdomen soft, appropriately tender, incision CDI DS: Data Data Completed and Pending Pending studies at discharge: Pending at discharge 06/13/21 15:37 Surgical [PTH] Routine Discharge Plan Discharge Attending physician on discharge: Karon Saxena Discharging Clinician: Karon Saxena Anticipated Discharge Date/Time: 06/16/21 07:50 Patient Disposition: Home, Self-Care Activity: may shower, may drive after 2 weeks and pelvic rest Diet: regular Patient Instructions: Antibiotic Form Stand Alone Forms: General Discharge Information Follow-up/Referrals: Karon Saxena MD [Physician] - 1 Week Discharge Medications: New hydrocodone-acetaminophen 5-325 mg tablet 1 tablet PO Q4H PRN (Reason: pain) Qty: 25 RF: 0 fluoxetine [Prozac] 10 mg Capsule 10 mg PO QAM Qty: 30 RF: 0 Continued PNV 101-azgn-zctxom-dha 90 mg iron- 1 mg-200 mg capsule 1 cap PO DAILY Qty: 90 RF: 0 ferrous sulfate 325 mg (65 mg iron) tablet 325 mg PO BID Qty: 60 RF: 0 Date of admission: 06/13/21 14:07 Primary Care Provider: Nelia,Indu Javier Admitting Provider: Karno Saxena. Attending physician on admission: Karon Saxena. Condition: Stable
[2021-06-16 07:55] VITALS: BP 97/57; PULSE 73; RESP 18; TEMP 36.5; O2SAT 100
[2021-06-16] MEDS: FLUoxetine HCL 10 MG CAPSULE PO (08:48)
[2021-06-16] MEDS: POLYSACCHARIDE IRON COMPLEX 150 MG CAPSULE PO ×2 (08:48→16:08)
[2021-06-16] MEDS: DOCUSATE SODIUM 100 MG CAPSULE PO ×2 (08:49→16:08)
[2021-06-16] MEDS: IBUPROFEN 600 MG TABLET PO ×2 (08:50→16:08)
== END 2021-06-16 18:00 | disposition home or self-care (01) | DRG 540 ==
LOC: ANHLDR 15:06 → ANHOB2 19:58
PROVIDERS: Admitting Provider Obstetrics & Gynecology; PCP Family Medicine; Visit Provider Obstetrics & Gynecology
PROC: 10D00Z1 Extraction of Products of Conception, Low, Open Approach (ICD-10-PCS; CPT 59514; principal; 2021-06-13 15:10)
DX: O34.211 Maternal care for low transverse scar from previous cesarean delivery (principal); Z37.0 Single live birth; Z3A.39 39 weeks gestation of pregnancy; O99.324 Drug use complicating childbirth; F11.90 Opioid use, unspecified, uncomplicated
CPT/HCPCS: 36415; 80307; 85025; 85055; 85461; 86592; 86703; 86762; 86850; 86900; 86901; 87340; 87491; 87591; 88307; 90384; 90710; 90715; A9270; G0432; J0131; J1200; J1580; J1885; J2250; J2270; J2274; J2590; J2790; J2795; J7120